=== PATIENT | male | born 1975 | race African-American/Black ===

== ENCOUNTER 2019-04-26 07:12 | Inpatient (IN) | payer BC ==
[~2019-04-26] VITALS: Ht 175.3 cm; Wt 106.1 kg
[2019-04-26] VITALS (24 sets, daily range): BP systolic 128–169; BP diastolic 75–134
[2019-04-26] MEDS ORDERED: NITROGLYCERIN PREMIX 250 ML IV ONE ×2 (07:23→07:45)
[2019-04-26] MEDS ORDERED: FUROSEMIDE 100 MG/10 ML VIAL. ONE (07:23)
--- NOTE | 2019-04-26 07:24 | PHYS DOC ---
Past Medical History Past Medical History: Hypertension Smoking: Cigarettes Drug Use: None (patient denies) Adult General Chief Complaint Chief Complaint: DYSPNEA/RESPIRATOY DISTRESS HPI HPI Patient is a 44-year-old male with history of hypertension who presents to the emergency department for evaluation and respiratory distress. He states he had some mild shortness of breath this morning, which gradually worsened, and then suddenly acutely worsened that just prior to arrival. His coworker was given a take him home, but due to the degree of respiratory distress that he began exhibiting, he was brought to the emergency department. Upon arrival, he is cold, diaphoretic, with an oxygen saturation in the 70s, tachycardic, and hypertensive. He was placed on a nonrebreather as BiPAP was arranged, he has diffuse crackles throughout, suggestive of acute pulmonary edema. He states his cough has been productive of clear sputum. He denies any pain, including any chest pain. He has not had any nausea, or vomiting. Laying flat seems to worsen his shortness of breath, as is exertion. Review of Systems Review of Systems Constitutional: Denies fever or chills [] Eyes: Denies change in visual acuity, redness, or eye pain [] HENT: Denies nasal congestion or sore throat [] Respiratory: Reports cough and shortness of breath[] Cardiovascular: No additional information not addressed in HPI [] GI: Denies abdominal pain, nausea, vomiting, bloody stools or diarrhea [] : Denies dysuria or hematuria [] Musculoskeletal: Denies back pain or joint pain [] Integument: Denies rash or skin lesions [] Neurologic: Denies headache, focal weakness or sensory changes [] Endocrine: Denies polyuria or polydipsia [] All other systems were reviewed and found to be within normal limits, except as documented in this note. Current Medications Current Medications Current Medications Medications (Trade) Dose Ordered Sig/Lena Start Time Stop Time Status Last Admin Dose Admin Aspirin (Children'S Aspirin) 324 mg 1X ONCE 04/26/19 07:45 04/26/19 07:46 DC 04/26/19 07:38 324 MG Furosemide (Lasix) 100 mg STK-MED ONCE 04/26/19 07:23 04/26/19 07:23 DC Morphine Sulfate (Morphine Sulfate) 2 mg PRN Q15MIN PRN 04/26/19 07:30 04/27/19 07:29 04/26/19 07:36 2 MG Nitroglycerin/ Dextrose 250 ml @ As Directed STK-MED ONCE 04/26/19 07:23 04/26/19 07:23 DC Allergies Allergies Allergies Coded Allergies Type Severity Reaction Last Updated Verified No Known Drug Allergies 04/26/19 No Physical Exam Physical Exam PHYSICAL EXAM: CONSTITUTIONAL: Well developed, well nourished HEAD: normocephalic, atraumatic EENT: PERRL, EOMI. Conjunctivae normal color, sclerae non-icteric; moist mucous membranes. NECK: Supple, non-tender; no meningismus. There is no JVD. LUNGS: There are crackles in all lung pina, with severe respiratory distress. HEART: Regular tachycardia, no murmur CHEST: No deformity; non-tender ABDOMEN: The abdomen is soft, and non-tender, no masses or bruits. EXTREM: Normal ROM; no deformity, no calf tenderness. Normal pulses palpable in all extremities. There is no pedal edema. SKIN: No rash; the skin is cool, diaphoretic NEURO: Alert; normal speech and cognition; CN's grossly intact; strength grossly intact without focal deficit. BACK: No CVA TTP. Current Patient Data Vital Signs Vital Signs Date Time Temp Pulse Resp B/P (MAP) Pulse Ox O2 Delivery O2 Flow Rate FiO2 04/26/19 07:36 30 98 BiPAP/CPAP 04/26/19 07:16 96.5 133 230/165 (186) 96.5 Lab Values Laboratory Tests Test 04/26/19 07:17 04/26/19 07:20 O2 Saturation 98 % (92-99) Arterial Blood pH 7.26 (7.35-7.45) L Arterial Blood pCO2 at Patient Temp 46 mmHg (35-46) Arterial Blood pO2 at Patient Temp 126 mmHg (75-108) H Arterial Blood HCO3 20 mmol/L (21-28) L Arterial Blood Base Excess -7 mmol/L (-3-3) L FiO2 60% bipap White Blood Count 12.5 x10^3/uL (4.0-11.0) H Red Blood Count 5.11 x10^6/uL (4.30-5.70) Hemoglobin 15.0 g/dL (13.0-17.5) Hematocrit 46.1 % (39.0-53.0) Mean Corpuscular Volume 90 fL (79-100) Mean Corpuscular Hemoglobin 29 pg (25-35) Mean Corpuscular Hemoglobin Concent 33 g/dL (31-37) Red Cell Distribution Width 14.2 % (11.5-14.5) Platelet Count 259 x10^3/uL (140-400) Neutrophils (%) (Auto) 70 % (31-73) Lymphocytes (%) (Auto) 23 % (24-48) L Monocytes (%) (Auto) 5 % (0-9) Eosinophils (%) (Auto) 2 % (0-3) Basophils (%) (Auto) 0 % (0-3) Neutrophils # (Auto) 8.8 x10^3/uL (1.8-7.7) H Lymphocytes # (Auto) 2.8 x10^3/uL (1.0-4.8) Monocytes # (Auto) 0.6 x10^3/uL (0.0-1.1) Eosinophils # (Auto) 0.3 x10^3/uL (0.0-0.7) Basophils # (Auto) 0.1 x10^3/uL (0.0-0.2) Prothrombin Time 12.6 SEC (11.7-14.0) Prothrombin Time INR 1.0 (0.8-1.1) Sodium Level 139 mmol/L (136-145) Potassium Level 4.7 mmol/L (3.5-5.1) Chloride Level 106 mmol/L (98-107) Carbon Dioxide Level 23 mmol/L (21-32) Anion Gap 10 (6-14) Blood Urea Nitrogen 18 mg/dL (8-26) Creatinine 1.8 mg/dL (0.7-1.3) H Estimated GFR (Cockcroft-Gault) 41.4 BUN/Creatinine Ratio 10 (6-20) Glucose Level 184 mg/dL (70-99) H Calcium Level 8.4 mg/dL (8.5-10.1) L Magnesium Level 1.9 mg/dL (1.8-2.4) Total Bilirubin 0.3 mg/dL (0.2-1.0) Aspartate Amino Transferase (AST) 26 U/L (15-37) Alanine Aminotransferase (ALT) 26 U/L (16-63) Alkaline Phosphatase 83 U/L (46-116) Troponin I Quantitative < 0.017 ng/mL (0.000-0.055) ZY-Owx-K-Type Natriuretic Peptide 2002 pg/mL (0-124) H Total Protein 8.1 g/dL (6.4-8.2) Albumin 3.6 g/dL (3.4-5.0) Albumin/Globulin Ratio 0.8 (1.0-1.7) L Laboratory Tests 04/26/19 07:20 Laboratory Tests 04/26/19 07:20 EKG EKG []Sinus tachycardia rate of 135 bpm, borderline left axis deviation, normal intervals, left ventricular hypertrophy with secondary repolarization abnormality without acute ischemic changes noted, rare PVCs. Radiology/Procedures Radiology/Procedures PROCEDURE: PORTABLE CHEST 1V Study: PORTABLE CHEST 1V Indication: Shortness of breath. Comparison: None. Findings: The cardiomediastinal silhouette is enlarged and the central vasculature congested. Increased interstitial markings and hazy attenuation with a perihilar predominance. No pneumothorax or large effusion. Impression: Cardiomegaly, central vascular congestion and findings of interstitial/alveolar edema without large effusion. [] Course & Med Decision Making Course & Med Decision Making Pertinent Labs and Imaging studies reviewed. (See chart for details) [] 9:00 AM: Patient's condition has significantly improved. His blood pressure improved with nitroglycerin drip, which is being titrated, his work of breathing and respiratory status had significantly improved. I discussed the case with the hospitalist will admit the patient for further evaluation and treatment. CRITICAL CARE TIME: 60 Minutes, excluding any procedures and care of other patients. Dragon Disclaimer Dragon Disclaimer This electronic medical record was generated, in whole or in part, using a voice recognition dictation system. Departure Departure Impression: Primary Impression: Acute pulmonary edema Additional Impressions: Congestive heart failure Hypertension Disposition: 09 ADMITTED INPATIENT Admitting Physician: DARLING Condition: GUARDED Problem Qualifiers LUIS CARLOS ORTEGA MD Apr 26, 2019 07:24
[2019-04-26] MEDS ORDERED: MORPHINE SULFATE 2 MG/ML VIAL. IV/SQ PRN (07:30)
[2019-04-26 07:44] LABS: BASE EXCESS ABG -7 mmol/L (-3-3); HCO3 ABG 20 mmol/L (21-28); PCO2 ABG 46 mmHg (35-46); PO2 ABG 126 mmHg (75-108); SAT O2 ABG 98 % (92-99)
[2019-04-26 07:45] LABS: BASO # 0.1 x10^3/uL (0.0-0.2); BASO % 0 % (0-3); EOS # 0.3 x10^3/uL (0.0-0.7); EOS % 2 % (0-3); HEMATOCRIT 46.1 % (39.0-53.0); LYMPH # 2.8 x10^3/uL (1.0-4.8); LYMPH % 23 % (24-48); MEAN CORPUSCULAR HEMOGLOBIN 29 pg (25-35); MEAN CORPUSCULAR HGB CONC 33 g/dL (31-37); MEAN CORPUSCULAR VOLUME 90 fL (79-100); MONO # 0.6 x10^3/uL (0.0-1.1); MONO % 5 % (0-9); NEUT # 8.8 x10^3/uL (1.8-7.7); NEUT % 70 % (31-73); PLATELET COUNT 259 x10^3/uL (140-400); RED BLOOD COUNT 5.11 x10^6/uL (4.30-5.70); RED CELL DISTRIBUTION WIDTH 14.2 % (11.5-14.5); WHITE BLOOD COUNT 12.5 x10^3/uL (4.0-11.0)
[2019-04-26] MEDS ORDERED: FUROSEMIDE 40 MG/4 ML VIAL. IVP ONE (07:45)
[2019-04-26] MEDS ORDERED: ASPIRIN CHEWABLE 81 MG TABLET. PO ONE (07:45)
--- NOTE | 2019-04-26 07:45 | RAD ---
Study: PORTABLE CHEST 1V Indication: Shortness of breath. Comparison: None. Findings: The cardiomediastinal silhouette is enlarged and the central vasculature congested. Increased interstitial markings and hazy attenuation with a perihilar predominance. No pneumothorax or large effusion. Impression: Cardiomegaly, central vascular congestion and findings of interstitial/alveolar edema without large effusion. Electronically signed by: CHANI REECE MD (04/26/2019 7:42 AM) [facility]
[2019-04-26 07:48] LABS: FIO2 ABG 60% BIPAP
[2019-04-26 07:50] LABS: PROTHROMBIN TIME PATIENT 12.6 SEC (11.7-14.0)
[2019-04-26 07:57] LABS: CALCIUM 8.4 mg/dL (8.5-10.1); CREATININE 1.8 mg/dL (0.7-1.3); GFR 41.4; POTASSIUM 4.7 mmol/L (3.5-5.1)
[2019-04-26 08:04] LABS: ALBUMIN 3.6 g/dL (3.4-5.0); ALBUMIN/GLOBULIN RATIO 0.8 (1.0-1.7); MAGNESIUM 1.9 mg/dL (1.8-2.4); TOTAL BILIRUBIN 0.3 mg/dL (0.2-1.0); TOTAL PROTEIN 8.1 g/dL (6.4-8.2)
--- NOTE | 2019-04-26 09:00 | EKG ---
[facility] [address] [place] [address] Test Date: 2019-04-26 Test Time: 07:21:01 Pat Name: VERONA ALLEN Department: Room: Gender: M [employer] Machine: : [id number] Requested By: LUIS CARLOS ORTEGA Order Number: [id number] Reading MD: Kevin Malin MD Measurements Intervals [place] Rate: 135 P: -78 NM: 108 QRS: 6 QRSD: 104 T: 79 QT: 308 QTc: 466 Interpretive Statements SINUS TACHYCARDIA LEFT ATRIAL ABNORMALITY LVH WITH REPOLARIZATION ABNORMALITY Electronically Signed On 04-26-2019 13:26:58 QUILL MACHINE OPERATOR by Kevin Malin MD
[2019-04-26 09:02] LABS: BILIRUBIN,URINE NEGATIVE (NEG); CLARITY,URINE CLEAR; COLOR,URINE YELLOW; NITRITE,URINE NEGATIVE (NEG); PROTEIN,URINE 30 mg/dL (NEG-TRACE); UROBILINOGEN,URINE 0.2 mg/dL (0.2 mg/dL)
[2019-04-26 09:11] LABS: BARBITURATES NEG (NEG); BENZODIAZEPINES NEG (NEG); CANNABINOIDS NEG (NEG); COCAINE NEG (NEG); METHADONE NEG (NEG); OPIATES POS (NEG); PHENCYCLIDINE NEG (NEG)
[2019-04-26 09:13] LABS: AMPHETAMINE/METHAMPHETAMINE NEG (NEG)
[2019-04-26 09:14] LABS: BACTERIA,URINE FEW /HPF (0-FEW); HYALINE CASTS, URINE OCCASIONAL /HPF; RBC,URINE 0 /HPF (0-2); SQUAMOUS EPITHELIAL CELL,UR FEW /LPF; WBC,URINE OCC /HPF (0-4)
[2019-04-26] MEDS ORDERED: AMLO10TA8 PO (10:22)
[2019-04-26] MEDS ORDERED: CARV25TA2 PO (10:22)
[2019-04-26] MEDS ORDERED: LISI-334 PO (10:22)
[2019-04-26] MEDS ORDERED: FURO-69 PO (10:22)
[2019-04-26] MEDS ORDERED: ATOR40TA59 PO (10:22)
[2019-04-26] MEDS ORDERED: NITROGLYCERIN PREMIX 250 ML IV PRN (10:30)
--- NOTE | 2019-04-26 10:40 | NUR ---
Rec'd fro ER per cart. Pt stood to bed. Placed on 100NRB for now instead of Bipap as pt stated he is breathing so much better. NTG on and BP still high so titrated up. Pt A&O. Denies any chest discomfort. 2 IV patent. Pt did not lnow his meds so Rosana called and meds reviewed. Pt stated he had been taking all his meds but that he was under stress at home. Lasix 80mg was given in ER and pt voided 900. Now voided another 500. Placed on 6l n/c sat 99%. Dr Dowell at bedside, Mother here.
--- NOTE | 2019-04-26 11:30 | PDOC2 ---
MEHDI ROCHA HUB LEAD 04/26/19 1130: CARDIAC CONSULT DATE OF CONSULT Date of Consult DATE: 04/26/19 TIME: 11:24 REASON FOR CONSULT Reason for Consult: CHF REFERRING PHYSICIAN Referring Physician: Dr. Dove SOURCE Source: Chart review, Patient HISTORY OF PRESENT ILLNESS HISTORY OF PRESENT ILLNESS This is a 44 yo male who presented secondary to shortness of breath and respiratory distress. Patient reports feeling slightly short of breath this morning. Drove to work and took his oral medications as usual. He walked into work and became significantly dyspneic. Had difficulty catching his breath. No chest pain, DICK, palpitations, dizziness, diaphoresis, or nausea/vomiting. Was tachypneic, hypoxic, and significantly hypertensive upon arrival. Was started on nitro gtt and given IV Lasix. Is feeling much better following diuresis. Does have a history of HTN and CVA. Reports compliance with medications. Reports increased stress at home as he recently went through divorce and has been working 12 hours shifts upon to 6 days per week. PAST MEDICAL HISTORY Cardiovascular: HTN CENTRAL NERVOUS SYSTEM: CVA PAST SURGICAL HISTORY Past Surgical History: No pertinent history FAMILY HISTORY Family History: Hypertension SOCIAL HISTORY Smoke: No ALCOHOL: none Drugs: None Lives: with Family CURRENT MEDICATIONS CURRENT MEDICATIONS Current Medications Medications (Trade) Dose Ordered Sig/Lena Route PRN Reason Start Time Stop Time Status Last Admin Dose Admin Aspirin (Children'S Aspirin) 324 mg 1X ONCE PO 04/26/19 07:45 04/26/19 07:46 DC 04/26/19 07:38 Morphine Sulfate (Morphine Sulfate) 2 mg PRN Q15MIN PRN IV/SQ PAIN GREATER THAN 3/10 04/26/19 07:30 04/27/19 07:29 04/26/19 07:36 Nitroglycerin/ Dextrose 250 ml @ 0 mls/hr 1X ONCE IV 04/26/19 07:45 04/26/19 07:46 DC 04/26/19 07:31 Furosemide (Lasix) 80 mg 1X ONCE IVP 04/26/19 07:45 04/26/19 07:46 DC 04/26/19 07:28 Nitroglycerin/ Dextrose 250 ml @ 1.5 mls/hr CONT PRN IV SEE I/O RECORD 04/26/19 10:30 04/26/19 10:35 ALLERGIES ALLERGIES: Coded Allergies: No Known Drug Allergies (Unverified , 04/26/19) ROS Review of System 14 point ROS conducted with pertinent positives noted above in HPI PHYSICAL EXAM General: Alert, Oriented X3, Cooperative, No acute distress HEENT: Atraumatic, Mucous membr. moist/pink Lungs: Other (bibasilar crackles ) Heart: Regular rate, Normal S1, Normal S2 Abdomen: Soft, No tenderness Extremities: Other (trace bilateral LE edema ) Skin: No significant lesion Neuro: Normal speech, Sensation intact Psych/Mental Status: Mental status NL, Mood NL MUSCULOSKELETAL: Osteoarthritic changes both hands VITALS/I&O VITALS/I&O: Vital Signs Date Time Temp Pulse Resp B/P (MAP) Pulse Ox O2 Delivery O2 Flow Rate FiO2 04/26/19 11:12 98 Nasal Cannula 5.0 04/26/19 09:05 92 24 168/103 (124) 04/26/19 07:16 96.5 96.5 LABS Lab: Laboratory Tests Test 04/26/19 07:17 04/26/19 07:20 04/26/19 08:50 O2 Saturation 98 % (92-99) Arterial Blood pH 7.26 (7.35-7.45) L Arterial Blood pCO2 at Patient Temp 46 mmHg (35-46) Arterial Blood pO2 at Patient Temp 126 mmHg (75-108) H Arterial Blood HCO3 20 mmol/L (21-28) L Arterial Blood Base Excess -7 mmol/L (-3-3) L FiO2 60% bipap White Blood Count 12.5 x10^3/uL (4.0-11.0) H Red Blood Count 5.11 x10^6/uL (4.30-5.70) Hemoglobin 15.0 g/dL (13.0-17.5) Hematocrit 46.1 % (39.0-53.0) Mean Corpuscular Volume 90 fL (79-100) Mean Corpuscular Hemoglobin 29 pg (25-35) Mean Corpuscular Hemoglobin Concent 33 g/dL (31-37) Red Cell Distribution Width 14.2 % (11.5-14.5) Platelet Count 259 x10^3/uL (140-400) Neutrophils (%) (Auto) 70 % (31-73) Lymphocytes (%) (Auto) 23 % (24-48) L Monocytes (%) (Auto) 5 % (0-9) Eosinophils (%) (Auto) 2 % (0-3) Basophils (%) (Auto) 0 % (0-3) Neutrophils # (Auto) 8.8 x10^3/uL (1.8-7.7) H Lymphocytes # (Auto) 2.8 x10^3/uL (1.0-4.8) Monocytes # (Auto) 0.6 x10^3/uL (0.0-1.1) Eosinophils # (Auto) 0.3 x10^3/uL (0.0-0.7) Basophils # (Auto) 0.1 x10^3/uL (0.0-0.2) Prothrombin Time 12.6 SEC (11.7-14.0) Prothrombin Time INR 1.0 (0.8-1.1) Sodium Level 139 mmol/L (136-145) Potassium Level 4.7 mmol/L (3.5-5.1) Chloride Level 106 mmol/L (98-107) Carbon Dioxide Level 23 mmol/L (21-32) Anion Gap 10 (6-14) Blood Urea Nitrogen 18 mg/dL (8-26) Creatinine 1.8 mg/dL (0.7-1.3) H Estimated GFR (Cockcroft-Gault) 41.4 BUN/Creatinine Ratio 10 (6-20) Glucose Level 184 mg/dL (70-99) H Calcium Level 8.4 mg/dL (8.5-10.1) L Magnesium Level 1.9 mg/dL (1.8-2.4) Total Bilirubin 0.3 mg/dL (0.2-1.0) Aspartate Amino Transferase (AST) 26 U/L (15-37) Alanine Aminotransferase (ALT) 26 U/L (16-63) Alkaline Phosphatase 83 U/L (46-116) Troponin I Quantitative < 0.017 ng/mL (0.000-0.055) PI-Elo-X-Type Natriuretic Peptide 2002 pg/mL (0-124) H Total Protein 8.1 g/dL (6.4-8.2) Albumin 3.6 g/dL (3.4-5.0) Albumin/Globulin Ratio 0.8 (1.0-1.7) L Urine Collection Type Unknown Urine Color Yellow Urine Clarity Clear Urine pH 5.0 Urine Specific [place] 1.010 Urine Protein 30 mg/dL (NEG-TRACE) Urine Glucose (UA) Negative mg/dL (NEG) Urine Ketones (Stick) Negative mg/dL (NEG) Urine Blood Negative (NEG) Urine Nitrite Negative (NEG) Urine Bilirubin Negative (NEG) Urine Urobilinogen Dipstick 0.2 mg/dL (0.2 mg/dL) Urine Leukocyte Esterase Negative (NEG) Urine RBC 0 /HPF (0-2) Urine WBC Occ /HPF (0-4) Urine Squamous Epithelial Cells Few /LPF Urine Bacteria Few /HPF (0-FEW) Urine Hyaline Casts Occasional /HPF Urine Opiates Screen Pos (NEG) Urine Methadone Screen Neg (NEG) Urine Barbiturates Neg (NEG) Urine Phencyclidine Screen Neg (NEG) Urine Amphetamine/Methamphetamine Neg (NEG) Urine Benzodiazepines Screen Neg (NEG) Urine Cocaine Screen Neg (NEG) Urine Cannabinoids Screen Neg (NEG) Urine Ethyl Alcohol Neg (NEG) Laboratory Tests 04/26/19 07:20 Laboratory Tests 04/26/19 07:20 ASSESSMENT/PLAN ASSESSMENT/PLAN 1. Acute respiratory failure secondary to acute CHF 2. Acute probable diastolic CHF in the setting malignant HTN 3. Malignant HTN; on nitro gtt 4. Probable CKD 5. H/o CVA Recommendations Diuresis with monitoring of renal function Echo to assess LV systolic function Resume home antiHTN therapy; increase lisinopril Hydralazine IV PRN Secondary prevention measures Will obtain renal duplex to r/o ANGELITO LENIN MANE MD 04/26/19 1417: CARDIAC CONSULT ASSESSMENT/PLAN ASSESSMENT/PLAN Patient seen and examined. Agree with FUR GLAZER's assessment and plan. Acute respiratory failure secondary to acute on chronic diastolic heart failure Symptoms improving with diuresis Resume home antihypertensives and titrate for better blood pressure control Check 2-D echo to assess LV function and renal arterial duplex scan to rule out renovascular hypertension Thank you for your consultation MEHDI ROCHA APRN Apr 26, 2019 11:30 LENIN MANE MD Apr 26, 2019 14:17
--- NOTE | 2019-04-26 11:35 | CONS ---
DATE OF CONSULTATION: PULMONARY CONSULTATION ATTENDING PHYSICIAN: Dr. Dove. REASON FOR CONSULTATION: Respiratory failure. HISTORY OF PRESENT ILLNESS: The patient is a 44-year-old who has history of hypertension. He presented to the Emergency Room with increased respiratory distress. He said he woke up and had progressive shortness of breath. He did not have any significant cough, fever or chills. No chest pain, no headaches, no nausea, vomiting, no diarrhea. No leg edema. The patient was seen in the Emergency Room and was diaphoretic. His saturations were in the 70s. He was tachycardic and hypertensive. His systolic blood pressure was reported 234/155. The patient's chest x-ray showed diffuse interstitial edema and cardiomegaly. The patient was initially placed on BiPAP. His ABG showed a pH of 7.26, pCO2 of 46 and a pO2 of 126 on 60% BiPAP. He did receive 80 mg of IV Lasix. He was then transferred to the ICU while on 100% nonrebreather mask. His saturations were in the high 90s and we switched him to 6 liters nasal cannula and he is saturating in the mid to high 90s. I have been asked to see him for further evaluation. This is his first episode of congestive heart failure. PAST MEDICAL HISTORY: Significant for history of hypertension. Minimal tobacco history. PAST SURGICAL HISTORY: No recent surgeries. ALLERGIES: None. MEDICATIONS: Reviewed as listed in the MRAD. REVIEW OF SYSTEMS: Twelve-point system obtained. Pertinent positives discussed in my history of present illness, otherwise noncontributory. All systems that were negative were reviewed as well. SOCIAL HISTORY: Denies any drug use and history of 10 years of tobacco use. PHYSICAL EXAMINATION: VITAL SIGNS: His vital signs are better. His initial blood pressure was 234/155, and the latest one is 168/103. Pulse is in the 90s. Pulse ox is 99% on 6 liters cannula. NECK: Supple. LUNGS: Crackles at the bases. CARDIOVASCULAR: With a regular rate. ABDOMEN: Soft, nontender. EXTREMITIES: With no pitting edema. LABORATORY DATA: Reviewed. His ABGs as discussed in my history of present illness. BUN 18, creatinine 1.8. ProBNP 2002. INR 1.0. White cell count 12.5, hemoglobin 15.0, platelets 259. IMPRESSION: 1. Acute hypoxic respiratory failure secondary to acute interstitial pulmonary edema secondary to hypertensive emergency. 2. The patient with known hypertension, now comes in with hypertensive emergency with markedly elevated systolic and diastolic pressure triggering acute diastolic heart failure, minimal history of tobacco use. 3. Abnormal chest x-ray with diffuse interstitial edema and moderate cardiomegaly. 4. Probably CKD. RECOMMENDATIONS: 1. Continue with present nasal cannula, keep saturation 96 and above and gradually wean FiO2. 2. Follow chest x-ray post-diuresis in the next 24 hours. 3. Obtain echocardiogram. 4. Cardiology consult and recommendation. 5. The patient would need optimization of blood pressure as an outpatient. 6. Echocardiogram per Cardiology. 7. Discussed with the patient's family, RN and Cardiology, [employer] FASTENER DRIVER and will follow along with you. Discussed with Dr. Dove. Total critical care time 35 minutes. CARLO COLÓN MD DR: DIONTE/marisel JOB#: [id number] / [id number]
[2019-04-26] MEDS: hydrALAZINE 20 MG/ML VIAL. IVP PRN (11:52)
--- NOTE | 2019-04-26 12:23 | HP ---
ADMIT DATE: 04/26/2019 CHIEF COMPLAINT: Respiratory failure. HISTORY OF PRESENT ILLNESS: The patient is a pleasant 44-year-old male who presented to the ER with fulminant respiratory failure. He was near , perhaps even 10 minutes away. He seems to be in severe heart failure, had a lot of crackles. He was extremely hypoxic, barely awake. He was cold and clammy. We gave him IV Lasix, placed him on BiPAP, given him nitro drip because his pressure is extremely high. He is now starting to respond. He is critically ill. PAST MEDICAL HISTORY: Hypertension and tobacco abuse. ALLERGIES: None. FAMILY HISTORY: Diabetes. SOCIAL HISTORY: He smokes and drinks socially. No drugs. MEDICATIONS: Reviewed, please refer to the MRAD. REVIEW OF SYSTEMS: Unable to obtain. The patient is too obtunded. PHYSICAL EXAMINATION: VITALS: Within normal limits and are stable. His blood pressure was 234/155 when he arrived. GENERAL: No apparent distress. Alert and oriented. HEENT: He has BiPAP on. Oral mucosa is moist. EYES: Extraocular muscles are intact, pupils are equally round and reactive to light and accommodation MUSCULOSKELETAL: Well developed, well nourished, good range of motion ENDOCRINE: No thyromegaly was palpated LYMPHATICS: No cervical chain or axillary nodes were noted HEMATOPOIETIC: No bruising NECK: Supple, no JVD, no thyromegaly was noted. LUNGS: He has got diffuse crackles. HEART: He has S1, S2 and a soft S3. ABDOMEN: Soft, nontender. Positive bowel sounds no organomegaly, normal bowel sounds. EXTREMITIES: He has 1+ edema. NEUROLOGIC: He is extremely obtunded. PSYCHIATRIC: Normal affect, normal mood. Stable. SKIN: No ulcerations or rashes, good skin turgor, no jaundice. VASCULAR: Good capillary refill, neurovascular bundle appears to be intact. LABORATORY DATA: White count is 12. Electrolytes are normal. BNP is 2000. Troponin is 0. Chest x-ray shows vascular congestion. Drug screen is positive for opiates. INR is 1. Urinalysis is negative. ASSESSMENT AND PLAN: Fulminant respiratory failure, suspect acute on chronic systolic and diastolic heart failure with hypertensive emergency. The patient has been admitted to the ICU. He is on BiPAP. We are diuresing him well. He has already put out 2000 mL. Continue the BiPAP. I called Dr. Dowell and spoke with him personally. He is going to see the patient. I talked to the ER nurse and the ER physician. LONG-TERM PROGNOSIS: Guarded. TOTAL TIME: 32 minutes. NEGRA HAWKINS DO DR: RODO/marisel JOB#: [id number] / [id number]
[2019-04-26] MEDS: amLODIPine BESYLATE 10 MG TABLET PO SCH (13:02)
[2019-04-26] MEDS: ISOSORBIDE MONONITRATE ER 30 MG TAB.ER.24H PO SCH (13:52)
[2019-04-26] MEDS: CARVEDILOL 12.5 MG TABLET. PO SCH (16:45)
[2019-04-27] VITALS (24 sets, daily range): BP systolic 90–173; BP diastolic 52–107
[2019-04-27 04:28] LABS: BASO % 0 % (0-3); EOS # 0.1 x10^3/uL (0.0-0.7); EOS % 1 % (0-3); HEMOGLOBIN 12.9 g/dL (13.0-17.5); LYMPH # 1.8 x10^3/uL (1.0-4.8); LYMPH % 19 % (24-48); MEAN CORPUSCULAR HEMOGLOBIN 29 pg (25-35); MEAN CORPUSCULAR HGB CONC 33 g/dL (31-37); MEAN CORPUSCULAR VOLUME 89 fL (79-100); MONO # 0.6 x10^3/uL (0.0-1.1); MONO % 7 % (0-9); NEUT # 7.3 x10^3/uL (1.8-7.7); NEUT % 73 % (31-73); PLATELET COUNT 225 x10^3/uL (140-400); RED BLOOD COUNT 4.38 x10^6/uL (4.30-5.70); RED CELL DISTRIBUTION WIDTH 14.1 % (11.5-14.5)
[2019-04-27] MEDS: hydrALAZINE 20 MG/ML VIAL. IVP PRN ×2 (04:37→08:16)
[2019-04-27 05:07] LABS: ALBUMIN 3.2 g/dL (3.4-5.0); ALBUMIN/GLOBULIN RATIO 0.8 (1.0-1.7); CALCIUM 8.4 mg/dL (8.5-10.1); CREATININE 1.6 mg/dL (0.7-1.3); GFR 57.4; POTASSIUM 3.4 mmol/L (3.5-5.1); TOTAL BILIRUBIN 0.5 mg/dL (0.2-1.0); TOTAL PROTEIN 7.1 g/dL (6.4-8.2)
[2019-04-27] MEDS: LABETALOL 20 MG/4 ML DISP.SYRIN. IVP PRN ×2 (06:33→08:35)
--- NOTE | 2019-04-27 06:42 | CARD ---
MR#: [id number] Date of Study: 04/26/2019 Ordering Physician: MEHDI ROCHA, Referring Physician: MEHDI ROCHA, Tech: Sully Nicole APPROVED REPORT EXAM: Two-dimensional and M-mode echocardiogram with Doppler and color Doppler. Other Information Quality : GoodHR: 85bpm INDICATION Congestive Heart Failure 2D DIMENSIONS RVDd2.7 (2.9-3.5cm)Left Atrium(2D)4.4 (1.6-4.0cm) IVSd1.5 (0.7-1.1cm)Aortic Root(2D)3.7 (2.0-3.7cm) LVDd5.9 (3.9-5.9cm)LVOT Diameter2.0 (1.8-2.4cm) PWd1.6 (0.7-1.1cm)LVDs5.4 (2.5-4.0cm) FS (%) 8.4 %SV31.9 ml LVEF(%)18.2 (>50%) Aortic Valve AoV Peak Ye.120.1cm/sAoV VTI21.5cm AO Peak GR.5.8mmHgLVOT VTI 10.72cm AO Mean GR.4mmHg Mitral Valve MV E Iypuwyth17.9cm/sMV E Peak Gr.4mmHg MV DECEL [id number] E Mean Gr.2mmHg TDI Lateral E' P. V4.25cm/sMedial E' P. V5.73cm/s E/Lateral E'6.6E/Medial E'4.9 Tricuspid Valve TR P. [id number]/sRAP [id number] TR Peak Gr.84izNcXZFL53eoUs Pulmonary Vein S1 Bkvwbdpi52.6cm/sS2 Agozescz15.71cm/s D2 Xrswbjcs09.7cm/sPVa [id number] LEFT VENTRICLE The Left Ventricle is borderline dilated. There is moderate concentric left ventricular hypertrophy. The left ventricular systolic function is severely impaired. The Ejection Fraction is 20-25%. There i s global hypokinesis of the left ventricle. RIGHT VENTRICLE The right ventricle is normal size. There is normal right ventricular wall thickness. The right ventr icular systolic function is normal. ATRIA The left atrium size is normal. The right atrium size is normal. The interatrial septum is intact wit h no evidence for an atrial septal defect or patent foramen ovale as noted on 2-D or Doppler imaging. AORTIC VALVE The aortic valve is normal in structure and function. Doppler and Color Flow revealed trace aortic re gurgitation. There is no significant aortic valvular stenosis. MITRAL VALVE The mitral valve is thickened but opens well. A borderline mitral valve prolapse is present. There is no mitral valve stenosis. Doppler and Color-flow revealed trace mitral regurgitation. TRICUSPID VALVE The tricuspid valve is normal in structure and function. Doppler and Color Flow revealed trace tricus pid regurgitation with an estimated 25 mmHg. There is no tricuspid valve stenosis. PULMONIC VALVE The pulmonary valve is normal in structure and function. Doppler and Color Flow revealed trace to mil d pulmonic valvular regurgitation. GREAT VESSELS The aortic root is normal in size. The IVC is normal in size and collapses >50% with inspiration. PERICARDIAL EFFUSION There is no evidence of significant pericardial effusion. Critical Notification Critical Value: No <Conclusion> The left ventricular systolic function is severely impaired. The Ejection Fraction is 20-25%. Trace mitral regurgitation. Trace tricuspid regurgitation with an estimated 25 mmHg. There is no evidence of significant pericardial effusion. Signed by : Jaspreet Delong, Electronically Approved : 04/27/2019 06:41:39
[2019-04-27] MEDS: LISINOPRIL 20 MG TABLET PO SCH (08:15)
[2019-04-27] MEDS: FUROSEMIDE 40 MG/4 ML VIAL. IVP SCH (08:16)
[2019-04-27] MEDS: ISOSORBIDE MONONITRATE ER 30 MG TAB.ER.24H PO SCH (08:17)
[2019-04-27] MEDS: ASPIRIN ENTERIC COATED 81 MG TABLET.DR. PO SCH (08:17)
[2019-04-27] MEDS: CARVEDILOL 12.5 MG TABLET. PO SCH ×2 (08:17→17:49)
[2019-04-27] MEDS: amLODIPine BESYLATE 10 MG TABLET PO SCH (08:18)
[2019-04-27] MEDS ORDERED: POTASSIUM CHLORIDE 20 MEQ TABLET.ER. PO ONE (08:30)
--- NOTE | 2019-04-27 08:34 | NUR ---
SS following for discharge planning. SS reviewed pt chart. Pt is from home and is currently on room air. SS will continue to follow for discharge planning.
--- NOTE | 2019-04-27 08:47 | RAD ---
EXAM: AP View of the chest DATE: 04/27/2019 7:00 AM INDICATION: CHF, pulmonary edema COMPARISON: 04/26/2019 FINDINGS: Cardiomediastinal silhouette is stable including cardiomegaly. Interval resolution of bilateral airspace opacities. No pleural effusion or pneumothorax. IMPRESSION: Interval resolution of bilateral airspace opacities suggesting improvement/resolution of pulmonary edema. Electronically signed by: Tao Mendez MD (04/27/2019 8:45 AM) [id number]
--- NOTE | 2019-04-27 08:53 | PDOC ---
PULMONARY PROGRESS NOTES Subjective feels better, no debora on RA Vitals Vital Signs Date Time Temp Pulse Resp B/P (MAP) Pulse Ox O2 Delivery O2 Flow Rate FiO2 04/27/19 08:35 90 171/108 04/27/19 06:00 20 99 Room Air 04/27/19 04:00 98.8 98.8 04/27/19 01:00 1.0 ROS: No Chest Pain General: Alert, No acute distress Lungs: Clear Cardiovascular: S1 Abdomen: Soft Neuro Exam: Alert Extremities: No Edema Skin: Warm Labs Laboratory Tests Test 04/26/19 07:17 04/26/19 07:20 04/26/19 08:50 04/27/19 04:05 O2 Saturation 98 % (92-99) Arterial Blood pH 7.26 (7.35-7.45) Arterial Blood pCO2 at Patient Temp 46 mmHg (35-46) Arterial Blood pO2 at Patient Temp 126 mmHg (75-108) Arterial Blood HCO3 20 mmol/L (21-28) Arterial Blood Base Excess -7 mmol/L (-3-3) FiO2 60% bipap White Blood Count 12.5 x10^3/uL (4.0-11.0) 10.0 x10^3/uL (4.0-11.0) Red Blood Count 5.11 x10^6/uL (4.30-5.70) 4.38 x10^6/uL (4.30-5.70) Hemoglobin 15.0 g/dL (13.0-17.5) 12.9 g/dL (13.0-17.5) Hematocrit 46.1 % (39.0-53.0) 39.0 % (39.0-53.0) Mean Corpuscular Volume 90 fL (79-100) 89 fL (79-100) Mean Corpuscular Hemoglobin 29 pg (25-35) 29 pg (25-35) Mean Corpuscular Hemoglobin Concent 33 g/dL (31-37) 33 g/dL (31-37) Red Cell Distribution Width 14.2 % (11.5-14.5) 14.1 % (11.5-14.5) Platelet Count 259 x10^3/uL (140-400) 225 x10^3/uL (140-400) Neutrophils (%) (Auto) 70 % (31-73) 73 % (31-73) Lymphocytes (%) (Auto) 23 % (24-48) 19 % (24-48) Monocytes (%) (Auto) 5 % (0-9) 7 % (0-9) Eosinophils (%) (Auto) 2 % (0-3) 1 % (0-3) Basophils (%) (Auto) 0 % (0-3) 0 % (0-3) Neutrophils # (Auto) 8.8 x10^3/uL (1.8-7.7) 7.3 x10^3/uL (1.8-7.7) Lymphocytes # (Auto) 2.8 x10^3/uL (1.0-4.8) 1.8 x10^3/uL (1.0-4.8) Monocytes # (Auto) 0.6 x10^3/uL (0.0-1.1) 0.6 x10^3/uL (0.0-1.1) Eosinophils # (Auto) 0.3 x10^3/uL (0.0-0.7) 0.1 x10^3/uL (0.0-0.7) Basophils # (Auto) 0.1 x10^3/uL (0.0-0.2) 0.0 x10^3/uL (0.0-0.2) Prothrombin Time 12.6 SEC (11.7-14.0) Prothromb Time International Ratio 1.0 (0.8-1.1) Sodium Level 139 mmol/L (136-145) 140 mmol/L (136-145) Potassium Level 4.7 mmol/L (3.5-5.1) 3.4 mmol/L (3.5-5.1) Chloride Level 106 mmol/L (98-107) 104 mmol/L (98-107) Carbon Dioxide Level 23 mmol/L (21-32) 25 mmol/L (21-32) Anion Gap 10 (6-14) 11 (6-14) Blood Urea Nitrogen 18 mg/dL (8-26) 21 mg/dL (8-26) Creatinine 1.8 mg/dL (0.7-1.3) 1.6 mg/dL (0.7-1.3) Estimated GFR (Cockcroft-Gault) 41.4 57.4 BUN/Creatinine Ratio 10 (6-20) 13 (6-20) Glucose Level 184 mg/dL (70-99) 109 mg/dL (70-99) Calcium Level 8.4 mg/dL (8.5-10.1) 8.4 mg/dL (8.5-10.1) Magnesium Level 1.9 mg/dL (1.8-2.4) 1.9 mg/dL (1.8-2.4) Total Bilirubin 0.3 mg/dL (0.2-1.0) 0.5 mg/dL (0.2-1.0) Aspartate Amino Transf (AST/SGOT) 26 U/L (15-37) 18 U/L (15-37) Alanine Aminotransferase (ALT/SGPT) 26 U/L (16-63) 20 U/L (16-63) Alkaline Phosphatase 83 U/L (46-116) 69 U/L (46-116) Troponin I Quantitative < 0.017 ng/mL (0.000-0.055) UT-Dtx-B-Type Natriuretic Peptide 2002 pg/mL (0-124) Total Protein 8.1 g/dL (6.4-8.2) 7.1 g/dL (6.4-8.2) Albumin 3.6 g/dL (3.4-5.0) 3.2 g/dL (3.4-5.0) Albumin/Globulin Ratio 0.8 (1.0-1.7) 0.8 (1.0-1.7) Triglycerides Level 77 mg/dL (0-150) Cholesterol Level 202 mg/dL (0-200) LDL Cholesterol, Calculated 120 mg/dL (0-100) VLDL Cholesterol, Calculated 15 mg/dL (0-40) Non-HDL Cholesterol Calculated 135 mg/dL (0-129) HDL Cholesterol 67 mg/dL (40-60) Cholesterol/HDL Ratio 3.0 Thyroid Stimulating Hormone (TSH) 2.218 uIU/mL (0.358-3.74) Urine Collection Type Unknown Urine Color Yellow Urine Clarity Clear Urine pH 5.0 Urine Specific Lapel 1.010 Urine Protein 30 mg/dL (NEG-TRACE) Urine Glucose (UA) Negative mg/dL (NEG) Urine Ketones (Stick) Negative mg/dL (NEG) Urine Blood Negative (NEG) Urine Nitrite Negative (NEG) Urine Bilirubin Negative (NEG) Urine Urobilinogen Dipstick 0.2 mg/dL (0.2 mg/dL) Urine Leukocyte Esterase Negative (NEG) Urine RBC 0 /HPF (0-2) Urine WBC Occ /HPF (0-4) Urine Squamous Epithelial Cells Few /LPF Urine Bacteria Few /HPF (0-FEW) Urine Hyaline Casts Occasional /HPF Urine Opiates Screen Pos (NEG) Urine Methadone Screen Neg (NEG) Urine Barbiturates Neg (NEG) Urine Phencyclidine Screen Neg (NEG) Urine Amphetamine/Methamphetamine Neg (NEG) Urine Benzodiazepines Screen Neg (NEG) Urine Cocaine Screen Neg (NEG) Urine Cannabinoids Screen Neg (NEG) Urine Ethyl Alcohol Neg (NEG) Laboratory Tests Test 04/26/19 08:50 04/27/19 04:05 Urine Collection Type Unknown Urine Color Yellow Urine Clarity Clear Urine pH 5.0 Urine Specific Lapel 1.010 Urine Protein 30 mg/dL (NEG-TRACE) Urine Glucose (UA) Negative mg/dL (NEG) Urine Ketones (Stick) Negative mg/dL (NEG) Urine Blood Negative (NEG) Urine Nitrite Negative (NEG) Urine Bilirubin Negative (NEG) Urine Urobilinogen Dipstick 0.2 mg/dL (0.2 mg/dL) Urine Leukocyte Esterase Negative (NEG) Urine RBC 0 /HPF (0-2) Urine WBC Occ /HPF (0-4) Urine Squamous Epithelial Cells Few /LPF Urine Bacteria Few /HPF (0-FEW) Urine Hyaline Casts Occasional /HPF Urine Opiates Screen Pos (NEG) Urine Methadone Screen Neg (NEG) Urine Barbiturates Neg (NEG) Urine Phencyclidine Screen Neg (NEG) Urine Amphetamine/Methamphetamine Neg (NEG) Urine Benzodiazepines Screen Neg (NEG) Urine Cocaine Screen Neg (NEG) Urine Cannabinoids Screen Neg (NEG) Urine Ethyl Alcohol Neg (NEG) White Blood Count 10.0 x10^3/uL (4.0-11.0) Red Blood Count 4.38 x10^6/uL (4.30-5.70) Hemoglobin 12.9 g/dL (13.0-17.5) Hematocrit 39.0 % (39.0-53.0) Mean Corpuscular Volume 89 fL (79-100) Mean Corpuscular Hemoglobin 29 pg (25-35) Mean Corpuscular Hemoglobin Concent 33 g/dL (31-37) Red Cell Distribution Width 14.1 % (11.5-14.5) Platelet Count 225 x10^3/uL (140-400) Neutrophils (%) (Auto) 73 % (31-73) Lymphocytes (%) (Auto) 19 % (24-48) Monocytes (%) (Auto) 7 % (0-9) Eosinophils (%) (Auto) 1 % (0-3) Basophils (%) (Auto) 0 % (0-3) Neutrophils # (Auto) 7.3 x10^3/uL (1.8-7.7) Lymphocytes # (Auto) 1.8 x10^3/uL (1.0-4.8) Monocytes # (Auto) 0.6 x10^3/uL (0.0-1.1) Eosinophils # (Auto) 0.1 x10^3/uL (0.0-0.7) Basophils # (Auto) 0.0 x10^3/uL (0.0-0.2) Sodium Level 140 mmol/L (136-145) Potassium Level 3.4 mmol/L (3.5-5.1) Chloride Level 104 mmol/L (98-107) Carbon Dioxide Level 25 mmol/L (21-32) Anion Gap 11 (6-14) Blood Urea Nitrogen 21 mg/dL (8-26) Creatinine 1.6 mg/dL (0.7-1.3) Estimated GFR (Cockcroft-Gault) 57.4 BUN/Creatinine Ratio 13 (6-20) Glucose Level 109 mg/dL (70-99) Calcium Level 8.4 mg/dL (8.5-10.1) Magnesium Level 1.9 mg/dL (1.8-2.4) Total Bilirubin 0.5 mg/dL (0.2-1.0) Aspartate Amino Transf (AST/SGOT) 18 U/L (15-37) Alanine Aminotransferase (ALT/SGPT) 20 U/L (16-63) Alkaline Phosphatase 69 U/L (46-116) Total Protein 7.1 g/dL (6.4-8.2) Albumin 3.2 g/dL (3.4-5.0) Albumin/Globulin Ratio 0.8 (1.0-1.7) Medications Active Scripts Medications Dose Route/Sig Max Daily Dose Days Date Category Carvedilol 25 Mg Tablet 25 Mg PO BIDWMEALS 04/26/19 Reported Lisinopril 20 Mg Tablet 1 Tab PO DAILY 04/26/19 Reported Amlodipine Besylate 10 Mg Tablet 10 Mg PO DAILY 04/26/19 Reported Atorvastatin Calcium 40 Mg Tablet 1 Tab PO DAILY 04/26/19 Reported Lasix (Furosemide) 20 Mg Tablet 20 Mg PO BID 04/26/19 Reported Comments cxr 04/27 resolved CHF Impression . 1. Acute hypoxic respiratory failure secondary to acute interstitial pulmonary edema secondary to hypertensive emergency. RESOLVED 2. The patient with known hypertension, now comes in with hypertensive emergency with markedly elevated systolic and diastolic pressure triggering acute diastolic, systolic heart failure, minimal history of tobacco use. 3. Abnormal chest x-ray with diffuse interstitial edema and moderate cardiomegaly. resolved 4. Probably CKD. 5. 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 1. Pt on RA. keep saturation 96 and above 2. Follow up chest x-ray post-diuresis with resolved CHF 3. EF 25%. Ischemic w/u per cardiology 4. Cardiology recommendation. 5. The patient would need optimization of blood pressure 6. Discussed with CARLO BURTON MD Apr 27, 2019 08:53
--- NOTE | 2019-04-27 08:56 | PDOC ---
PROGRESS NOTES Chief Complaint Chief Complaint Acute hypoxic respiratory failure secondary to acute interstitial pulmonary edema Hypertensive emergency Acute diastolic, systolic heart failure Minimal history of tobacco use. 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 His saturations were in the 70s. He was tachycardic and hypertensive. His systolic blood pressure was reported 234/155. The patient's chest x-ray showed diffuse interstitial edema and cardiomegaly. The patient was initially placed on BiPAP. His ABG showed a pH of 7.26, pCO2 of 46 and a pO2 of 126 on 60% BiPAP. He did receive 80 mg of IV Lasix. He was then transferred to the ICU while on 100% nonrebreather mask. His saturations were in the high 90s and we switched him to 6 liters nasal cannula and he is saturating in the mid to high 90s. Started on NTG gtt for his BP with some improvement. He is critically ill. Echo shows EF 25%. Plan for cardiac cath today. ill. PAST MEDICAL HISTORY: Hypertension and tobacco abuse. Vitals Vitals Vital Signs Date Time Temp Pulse Resp B/P (MAP) Pulse Ox O2 Delivery O2 Flow Rate FiO2 04/27/19 08:35 90 171/108 04/27/19 06:00 20 99 Room Air 04/27/19 04:00 98.8 98.8 04/27/19 01:00 1.0 Physical Exam General: Alert, Oriented X3, Cooperative, No acute distress Heart: Regular rate, Normal S1, Normal S2 Lungs: Clear Abdomen: Soft, No tenderness Extremities: Other (trace bilateral LE edema ) Skin: No significant lesion Labs LABS Laboratory Tests Test 04/27/19 04:05 White Blood Count 10.0 x10^3/uL (4.0-11.0) Red Blood Count 4.38 x10^6/uL (4.30-5.70) Hemoglobin 12.9 g/dL (13.0-17.5) Hematocrit 39.0 % (39.0-53.0) Mean Corpuscular Volume 89 fL (79-100) Mean Corpuscular Hemoglobin 29 pg (25-35) Mean Corpuscular Hemoglobin Concent 33 g/dL (31-37) Red Cell Distribution Width 14.1 % (11.5-14.5) Platelet Count 225 x10^3/uL (140-400) Neutrophils (%) (Auto) 73 % (31-73) Lymphocytes (%) (Auto) 19 % (24-48) Monocytes (%) (Auto) 7 % (0-9) Eosinophils (%) (Auto) 1 % (0-3) Basophils (%) (Auto) 0 % (0-3) Neutrophils # (Auto) 7.3 x10^3/uL (1.8-7.7) Lymphocytes # (Auto) 1.8 x10^3/uL (1.0-4.8) Monocytes # (Auto) 0.6 x10^3/uL (0.0-1.1) Eosinophils # (Auto) 0.1 x10^3/uL (0.0-0.7) Basophils # (Auto) 0.0 x10^3/uL (0.0-0.2) Sodium Level 140 mmol/L (136-145) Potassium Level 3.4 mmol/L (3.5-5.1) Chloride Level 104 mmol/L (98-107) Carbon Dioxide Level 25 mmol/L (21-32) Anion Gap 11 (6-14) Blood Urea Nitrogen 21 mg/dL (8-26) Creatinine 1.6 mg/dL (0.7-1.3) Estimated GFR (Cockcroft-Gault) 57.4 BUN/Creatinine Ratio 13 (6-20) Glucose Level 109 mg/dL (70-99) Calcium Level 8.4 mg/dL (8.5-10.1) Magnesium Level 1.9 mg/dL (1.8-2.4) Total Bilirubin 0.5 mg/dL (0.2-1.0) Aspartate Amino Transf (AST/SGOT) 18 U/L (15-37) Alanine Aminotransferase (ALT/SGPT) 20 U/L (16-63) Alkaline Phosphatase 69 U/L (46-116) Total Protein 7.1 g/dL (6.4-8.2) Albumin 3.2 g/dL (3.4-5.0) Albumin/Globulin Ratio 0.8 (1.0-1.7) Assessment and Plan Assessmemt and Plan Problems Medical Problems: (1) Acute pulmonary edema Status: Acute (2) Congestive heart failure Status: Acute (3) Hypertension Status: Acute Comment Review of Relevant I have reviewed the following items eladia (where applicable) has been applied. Labs Laboratory Tests Test 04/26/19 07:17 04/26/19 07:20 04/26/19 08:50 04/27/19 04:05 O2 Saturation 98 % (92-99) Arterial Blood pH 7.26 (7.35-7.45) Arterial Blood pCO2 at Patient Temp 46 mmHg (35-46) Arterial Blood pO2 at Patient Temp 126 mmHg (75-108) Arterial Blood HCO3 20 mmol/L (21-28) Arterial Blood Base Excess -7 mmol/L (-3-3) FiO2 60% bipap White Blood Count 12.5 x10^3/uL (4.0-11.0) 10.0 x10^3/uL (4.0-11.0) Red Blood Count 5.11 x10^6/uL (4.30-5.70) 4.38 x10^6/uL (4.30-5.70) Hemoglobin 15.0 g/dL (13.0-17.5) 12.9 g/dL (13.0-17.5) Hematocrit 46.1 % (39.0-53.0) 39.0 % (39.0-53.0) Mean Corpuscular Volume 90 fL (79-100) 89 fL (79-100) Mean Corpuscular Hemoglobin 29 pg (25-35) 29 pg (25-35) Mean Corpuscular Hemoglobin Concent 33 g/dL (31-37) 33 g/dL (31-37) Red Cell Distribution Width 14.2 % (11.5-14.5) 14.1 % (11.5-14.5) Platelet Count 259 x10^3/uL (140-400) 225 x10^3/uL (140-400) Neutrophils (%) (Auto) 70 % (31-73) 73 % (31-73) Lymphocytes (%) (Auto) 23 % (24-48) 19 % (24-48) Monocytes (%) (Auto) 5 % (0-9) 7 % (0-9) Eosinophils (%) (Auto) 2 % (0-3) 1 % (0-3) Basophils (%) (Auto) 0 % (0-3) 0 % (0-3) Neutrophils # (Auto) 8.8 x10^3/uL (1.8-7.7) 7.3 x10^3/uL (1.8-7.7) Lymphocytes # (Auto) 2.8 x10^3/uL (1.0-4.8) 1.8 x10^3/uL (1.0-4.8) Monocytes # (Auto) 0.6 x10^3/uL (0.0-1.1) 0.6 x10^3/uL (0.0-1.1) Eosinophils # (Auto) 0.3 x10^3/uL (0.0-0.7) 0.1 x10^3/uL (0.0-0.7) Basophils # (Auto) 0.1 x10^3/uL (0.0-0.2) 0.0 x10^3/uL (0.0-0.2) Prothrombin Time 12.6 SEC (11.7-14.0) Prothromb Time International Ratio 1.0 (0.8-1.1) Sodium Level 139 mmol/L (136-145) 140 mmol/L (136-145) Potassium Level 4.7 mmol/L (3.5-5.1) 3.4 mmol/L (3.5-5.1) Chloride Level 106 mmol/L (98-107) 104 mmol/L (98-107) Carbon Dioxide Level 23 mmol/L (21-32) 25 mmol/L (21-32) Anion Gap 10 (6-14) 11 (6-14) Blood Urea Nitrogen 18 mg/dL (8-26) 21 mg/dL (8-26) Creatinine 1.8 mg/dL (0.7-1.3) 1.6 mg/dL (0.7-1.3) Estimated GFR (Cockcroft-Gault) 41.4 57.4 BUN/Creatinine Ratio 10 (6-20) 13 (6-20) Glucose Level 184 mg/dL (70-99) 109 mg/dL (70-99) Calcium Level 8.4 mg/dL (8.5-10.1) 8.4 mg/dL (8.5-10.1) Magnesium Level 1.9 mg/dL (1.8-2.4) 1.9 mg/dL (1.8-2.4) Total Bilirubin 0.3 mg/dL (0.2-1.0) 0.5 mg/dL (0.2-1.0) Aspartate Amino Transf (AST/SGOT) 26 U/L (15-37) 18 U/L (15-37) Alanine Aminotransferase (ALT/SGPT) 26 U/L (16-63) 20 U/L (16-63) Alkaline Phosphatase 83 U/L (46-116) 69 U/L (46-116) Troponin I Quantitative < 0.017 ng/mL (0.000-0.055) FL-Oge-Q-Type Natriuretic Peptide 2002 pg/mL (0-124) Total Protein 8.1 g/dL (6.4-8.2) 7.1 g/dL (6.4-8.2) Albumin 3.6 g/dL (3.4-5.0) 3.2 g/dL (3.4-5.0) Albumin/Globulin Ratio 0.8 (1.0-1.7) 0.8 (1.0-1.7) Triglycerides Level 77 mg/dL (0-150) Cholesterol Level 202 mg/dL (0-200) LDL Cholesterol, Calculated 120 mg/dL (0-100) VLDL Cholesterol, Calculated 15 mg/dL (0-40) Non-HDL Cholesterol Calculated 135 mg/dL (0-129) HDL Cholesterol 67 mg/dL (40-60) Cholesterol/HDL Ratio 3.0 Thyroid Stimulating Hormone (TSH) 2.218 uIU/mL (0.358-3.74) Urine Collection Type Unknown Urine Color Yellow Urine Clarity Clear Urine pH 5.0 Urine Specific [place] 1.010 Urine Protein 30 mg/dL (NEG-TRACE) Urine Glucose (UA) Negative mg/dL (NEG) Urine Ketones (Stick) Negative mg/dL (NEG) Urine Blood Negative (NEG) Urine Nitrite Negative (NEG) Urine Bilirubin Negative (NEG) Urine Urobilinogen Dipstick 0.2 mg/dL (0.2 mg/dL) Urine Leukocyte Esterase Negative (NEG) Urine RBC 0 /HPF (0-2) Urine WBC Occ /HPF (0-4) Urine Squamous Epithelial Cells Few /LPF Urine Bacteria Few /HPF (0-FEW) Urine Hyaline Casts Occasional /HPF Urine Opiates Screen Pos (NEG) Urine Methadone Screen Neg (NEG) Urine Barbiturates Neg (NEG) Urine Phencyclidine Screen Neg (NEG) Urine Amphetamine/Methamphetamine Neg (NEG) Urine Benzodiazepines Screen Neg (NEG) Urine Cocaine Screen Neg (NEG) Urine Cannabinoids Screen Neg (NEG) Urine Ethyl Alcohol Neg (NEG) Laboratory Tests Test 04/27/19 04:05 White Blood Count 10.0 x10^3/uL (4.0-11.0) Red Blood Count 4.38 x10^6/uL (4.30-5.70) Hemoglobin 12.9 g/dL (13.0-17.5) Hematocrit 39.0 % (39.0-53.0) Mean Corpuscular Volume 89 fL (79-100) Mean Corpuscular Hemoglobin 29 pg (25-35) Mean Corpuscular Hemoglobin Concent 33 g/dL (31-37) Red Cell Distribution Width 14.1 % (11.5-14.5) Platelet Count 225 x10^3/uL (140-400) Neutrophils (%) (Auto) 73 % (31-73) Lymphocytes (%) (Auto) 19 % (24-48) Monocytes (%) (Auto) 7 % (0-9) Eosinophils (%) (Auto) 1 % (0-3) Basophils (%) (Auto) 0 % (0-3) Neutrophils # (Auto) 7.3 x10^3/uL (1.8-7.7) Lymphocytes # (Auto) 1.8 x10^3/uL (1.0-4.8) Monocytes # (Auto) 0.6 x10^3/uL (0.0-1.1) Eosinophils # (Auto) 0.1 x10^3/uL (0.0-0.7) Basophils # (Auto) 0.0 x10^3/uL (0.0-0.2) Sodium Level 140 mmol/L (136-145) Potassium Level 3.4 mmol/L (3.5-5.1) Chloride Level 104 mmol/L (98-107) Carbon Dioxide Level 25 mmol/L (21-32) Anion Gap 11 (6-14) Blood Urea Nitrogen 21 mg/dL (8-26) Creatinine 1.6 mg/dL (0.7-1.3) Estimated GFR (Cockcroft-Gault) 57.4 BUN/Creatinine Ratio 13 (6-20) Glucose Level 109 mg/dL (70-99) Calcium Level 8.4 mg/dL (8.5-10.1) Magnesium Level 1.9 mg/dL (1.8-2.4) Total Bilirubin 0.5 mg/dL (0.2-1.0) Aspartate Amino Transf (AST/SGOT) 18 U/L (15-37) Alanine Aminotransferase (ALT/SGPT) 20 U/L (16-63) Alkaline Phosphatase 69 U/L (46-116) Total Protein 7.1 g/dL (6.4-8.2) Albumin 3.2 g/dL (3.4-5.0) Albumin/Globulin Ratio 0.8 (1.0-1.7) Medications Current Medications Aspirin (Children'S Aspirin) 324 mg 1X ONCE PO Last administered on 04/26/19at 07:38; Start 04/26/19 at 07:45; Stop 04/26/19 at 07:46; Status DC Morphine Sulfate (Morphine Sulfate) 2 mg PRN Q15MIN PRN IV/SQ PAIN GREATER THAN 3/10 Last administered on 04/26/19at 07:36; Start 04/26/19 at 07:30; Stop 04/27/19 at 07:29; Status DC Nitroglycerin/ Dextrose 250 ml @ 0 mls/hr 1X ONCE IV Last administered on 04/26/19at 07:31; Start 04/26/19 at 07:45; Stop 04/26/19 at 07:46; Status DC Furosemide (Lasix) 80 mg 1X ONCE IVP Last administered on 04/26/19at 07:28; Start 04/26/19 at 07:45; Stop 04/26/19 at 07:46; Status DC Furosemide (Lasix) 100 mg STK-MED ONCE .ROUTE ; Start 04/26/19 at 07:23; Stop 04/26/19 at 07:23; Status DC Nitroglycerin/ Dextrose 250 ml @ As Directed STK-MED ONCE IV ; Start 04/26/19 at 07:23; Stop 04/26/19 at 07:23; Status DC Nitroglycerin/ Dextrose 250 ml @ 1.5 mls/hr CONT PRN IV SEE I/O RECORD Last administered on 04/26/19at 10:35; Start 04/26/19 at 10:30 Amlodipine Besylate (Norvasc) 10 mg DAILY PO Last administered on 04/27/19 08:18; Start 04/26/19 at 12:00 Hydralazine HCl (Apresoline Inj) 10 mg PRN Q4HRS PRN IVP ELEVATED BP, SEE COMMENTS Last administered on 04/27/19 08:16; Start 04/26/19 at 11:30 Labetalol HCl (Normodyne Iv Push) 20 mg PRN Q2HR PRN IVP HYPERTENSION Last administered on 04/27/19 08:35; Start 04/26/19 at 11:30 Lisinopril (Prinivil) 40 mg DAILY PO Last administered on 04/27/19 08:15; Start 04/27/19 at 09:00 Carvedilol (Coreg) 25 mg BIDWMEALS PO Last administered on 04/27/19 08:17; Start 04/26/19 at 17:00 Aspirin (Ecotrin) 81 mg DAILYWBKFT PO Last administered on 04/27/19 08:17; Start 04/27/19 at 08:00 Furosemide (Lasix) 40 mg DAILY IVP Last administered on 04/27/19 08:16; Start 04/27/19 at 09:00 Isosorbide Mononitrate (Imdur) 30 mg DAILY PO Last administered on 04/27/19 08:17; Start 04/26/19 at 14:00 Potassium Chloride (Klor-Con) 40 meq 1X ONCE PO Last administered on 04/27/19 08:19; Start 04/27/19 at 08:30; Stop 04/27/19 at 08:31; Status DC Atorvastatin Calcium (Lipitor) 20 mg QHS PO ; Start 04/27/19 at 21:00 Active Scripts Active Reported Carvedilol 25 Mg Tablet 25 Mg PO BIDWMEALS Lisinopril 20 Mg Tablet 1 Tab PO DAILY Amlodipine Besylate 10 Mg Tablet 10 Mg PO DAILY Atorvastatin Calcium 40 Mg Tablet 1 Tab PO DAILY Lasix (Furosemide) 20 Mg Tablet 20 Mg PO BID Vitals/I & O Vital Sign - Last 24 Hours 04/26/19 04/26/19 04/26/19 04/26/19 09:05 09:45 10:00 10:15 Temp 98.4 98.4 Pulse 92 92 94 92 Resp 24 16 16 16 B/P (MAP) 168/103 (124) 166/127 (140) 169/134 (146) 150/104 (119) Pulse Ox 100 100 100 100 O2 Delivery BiPAP/CPAP NonRebreather Mask NonRebreather Mask Nasal Cannula O2 Flow Rate 6.0 04/26/19 04/26/19 04/26/19 04/26/19 10:30 11:00 11:00 11:12 Pulse 90 92 Resp 16 16 B/P (MAP) 150/113 (125) 149/102 (118) Pulse Ox 95 95 98 O2 Delivery Nasal Cannula Nasal Cannula Nasal Cannula Nasal Cannula O2 Flow Rate 6.0 6.0 6.0 5.0 04/26/19 04/26/19 04/26/19 04/26/19 11:15 11:30 11:52 12:00 Temp 98.3 98.3 Pulse 90 92 91 82 Resp 16 16 16 B/P (MAP) 148/110 (123) 145/105 (118) 139/99 139/99 (112) Pulse Ox 95 95 O2 Delivery Nasal Cannula Nasal Cannula Nasal Cannula O2 Flow Rate 6.0 6.0 6.0 04/26/19 04/26/19 04/26/19 04/26/19 12:30 13:02 13:30 13:45 Pulse 84 88 88 86 Resp 16 16 16 B/P (MAP) 149/103 (118) 158/99 152/99 (116) 141/83 (102) Pulse Ox 94 94 O2 Delivery Nasal Cannula Nasal Cannula Nasal Cannula O2 Flow Rate 6.0 6.0 4.0 04/26/19 04/26/19 04/26/19 04/26/19 13:52 14:00 15:00 15:30 Pulse 94 88 88 88 Resp 16 16 16 B/P (MAP) 141/83 129/86 (100) 144/86 (105) 152/88 (109) O2 Delivery Nasal Cannula Nasal Cannula Nasal Cannula O2 Flow Rate 4.0 4.0 04/26/19 04/26/19 04/26/19 04/26/19 16:00 16:01 16:30 16:45 Temp 98.2 98.2 Pulse 88 96 90 Resp 16 16 B/P (MAP) 133/89 (104) 141/83 (102) 141/83 Pulse Ox 94 O2 Delivery Nasal Cannula Nasal Cannula Nasal Cannula O2 Flow Rate 3.0 6.0 04/26/19 04/26/19 04/26/19 04/26/19 17:00 17:30 19:00 20:00 Temp 98.3 98.3 Pulse 90 88 84 74 Resp 16 16 18 18 B/P (MAP) 151/93 (112) 163/96 (118) 163/96 (118) 145/75 (98) Pulse Ox 96 98 98 O2 Delivery Nasal Cannula Nasal Cannula Nasal Cannula Nasal Cannula O2 Flow Rate 3.0 3.0 3.0 04/26/19 04/26/19 04/26/19 04/26/19 20:00 21:00 21:15 22:00 Pulse 72 89 81 Resp 16 20 B/P (MAP) 128/77 (94) 136/75 (95) 149/91 (110) Pulse Ox 97 97 O2 Delivery Nasal Cannula Nasal Cannula Nasal Cannula O2 Flow Rate 3.0 3.0 2.0 04/26/19 04/26/19 04/27/19 04/27/19 23:00 23:50 00:00 01:00 Temp 98.0 98.0 Pulse 85 80 78 Resp 22 20 18 B/P (MAP) 135/75 (95) 141/87 (105) 144/78 (100) Pulse Ox 98 97 97 O2 Delivery Nasal Cannula Nasal Cannula Nasal Cannula Nasal Cannula O2 Flow Rate 1.0 1.0 1.0 1.0 04/27/19 04/27/19 04/27/19 04/27/19 02:00 03:00 03:30 04:00 Temp 98.8 98.8 Pulse 87 76 70 Resp 18 22 20 B/P (MAP) 138/88 (105) 148/76 (100) 149/91 (110) Pulse Ox 95 97 98 O2 Delivery Room Air Room Air Room Air Room Air 04/27/19 04/27/19 04/27/19 04/27/19 04:37 05:00 06:00 06:33 Pulse 81 75 73 77 Resp 18 20 B/P (MAP) 162/97 148/91 (110) 143/83 (103) 161/97 Pulse Ox 96 99 O2 Delivery Room Air Room Air 04/27/19 04/27/19 04/27/19 04/27/19 08:15 08:16 08:17 08:17 Pulse 72 72 73 73 B/P (MAP) 173/107 173/107 173/107 173/107 04/27/19 04/27/19 08:18 08:35 Pulse 73 90 B/P (MAP) 170/107 171/108 Intake and Output 04/26/19 04/26/19 04/27/19 15:00 23:00 07:00 Intake Total 250 ml 330 ml Output Total 1600 ml 750 ml 0 ml Balance -1350 ml -420 ml 0 ml CRUZ OSBORN MD Apr 27, 2019 08:56
[2019-04-27] MEDS ORDERED: ACETAMINOPHEN 325 MG TABLET. PO ONE (09:15)
[2019-04-27] MEDS ORDERED: ISOSORBIDE MONONITRATE ER 30 MG TAB.ER.24H PO ONE (09:15)
--- NOTE | 2019-04-27 09:19 | PDOC ---
Provider Note Provider Note Echo showed LVEF 20-25%. New finding of cardiomyopathy discussed with patient. Recommend left heart cath to r/o ischemic etiology. R/b/a discussed with patient and he is agreeable. Will proceed with later this morning. MEHDI ROCHA APRN Apr 27, 2019 09:19
--- NOTE | 2019-04-27 09:30 | RAD ---
MR#: [id number] Date of Study: 04/27/2019 Ordering Physician: MEHDI ROCHA, Referring Physician: MEHDI ROCHA, Tech: Maxine Moore RT R, CT RDMS , [facility] APPROVED REPORT Patient Location: IN-PATIENT Indications Uncontrolled HTN Risk Factors Hypertension Renal Artery Doppler Right Renal Artery Left Renal Arter y Proximal 71.0/37.0 cm/secProximal 78.0/35.0 cm/sec Mid 60.0/25.0 cm/secMid 82.0/36.0 cm/sec Distal 85.0/42.0 cm/secDistal 42.0/23.0 cm/sec Renal/Aorta Ratio 0.70Renal/Aorta Ratio 0.70 Prox. Resistive Index 0.50Prox. Resistive Index 0.60 Mid Resistive Index 0.60Mid Resistive Index 0.60 Distal Resistive Index 0.50Distal Resistive Index 0.40 Renal Measurements RightLeft Kidney Mtqslu26.6 cm cmKidney Length9.6 cm cm Right Additional FindingsLeft Additional Findings Aortic Doppler VelocityWaveform Proximal Aorta 116.0 cm/secTriphasic Findings Limited grayscale evaluation of the bilateral kidneys is grossly unremarkable. Cannot rule out a cyst in superior pole of the left kidney. Spectral waveforms and color Doppler of the proximal, mid and distal renal arteries are grossly unrem arkable. The waveforms are technically limited. The aortic velocities and wave forms are within kelvin l limits. Normal renal to aortic ratios noted. No significant hemodynamic stenosis is identified. Critical Notification Critical Value: No <Conclusion> 1. Technically difficult study 2. No clear evidence of renal artery stenosis bilaterally Signed by : Kevin Malin, Electronically Approved : 04/27/2019 09:29:38
[2019-04-27] MEDS ORDERED: IODIXANOL 320 MG/ML 100 ML VIAL. ONE (10:48)
[2019-04-27] MEDS ORDERED: LIDOCAINE 1% PF 2 ML VIAL. ONE (10:48)
[2019-04-27] MEDS ORDERED: VERAPAMIL 5 MG/2 ML VIAL. ONE (11:03)
[2019-04-27] MEDS ORDERED: HEPARIN for IV BOLUS 10,000 UNIT/10 ML VIAL. ONE (11:03)
[2019-04-27] MEDS ORDERED: NITROGLYCERIN 200 MCG/2 ML SYRINGE FOR CATH/VASC LAB. ONE (11:03)
[2019-04-27] MEDS ORDERED: fentaNYL PF VIAL 100 MCG/2 ML VIAL ONE (11:03)
[2019-04-27] MEDS ORDERED: MIDAZOLAM HCL/PF 2 MG/2 ML VIAL. ONE (11:03)
[2019-04-27] MEDS ORDERED: HEPARIN for IV BOLUS 10,000 UNIT/10 ML VIAL. IART ONE (11:15)
[2019-04-27] MEDS ORDERED: VERAPAMIL 5 MG/2 ML VIAL. IART ONE (11:15)
[2019-04-27] MEDS ORDERED: NITROGLYCERIN 200 MCG/2 ML SYRINGE FOR CATH/VASC LAB. IART ONE (11:15)
[2019-04-27] MEDS ORDERED: IODIXANOL 320 MG/ML 100 ML VIAL. IART ONE (11:15)
[2019-04-27] MEDS ORDERED: fentaNYL PF VIAL 100 MCG/2 ML VIAL IV ONE (11:15)
[2019-04-27] MEDS ORDERED: LIDOCAINE 1% PF 2 ML VIAL. INJ ONE (11:15)
[2019-04-27] MEDS ORDERED: MIDAZOLAM HCL/PF 2 MG/2 ML VIAL. IV ONE (11:15)
[2019-04-27] MEDS ORDERED: CONTRAST GIVEN. MC PRN (11:30)
--- NOTE | 2019-04-27 11:44 | NUR ---
8899 Patient stood to use urinal prior to going to boat laborer. Started having pain in left lower leg and became diaphoretic. Took patient's blood pressure and it was quite a bit lower than previous measurements. Had patient lie back down in the bed and rechecked blood pressure. Blood pressure normalized. Patient to boat laborer via bed accompanied by boat laborer personnel.
[2019-04-27] MEDS ORDERED: IV NORMAL SALINE 500ML BAG 500 ML IV ONE (12:30)
--- NOTE | 2019-04-27 12:38 | PDOC ---
MODERATE SEDATION ASSESSMENT RISKS/ALTERNATIVES Risks/Alternatives Risks and alternatives of this type of sedation and procedure discussed with: RISK/ALTERNATIVES: Patient H & P ON CHART H & P H & P on chart and reviewed for co-morbid conditions and appropriate labs. H&P ON CHART: Yes STATUS PREG STATUS ASSESSED: N/A MEDS/ALLERGIES REVIEWED Meds/Allergies Reviewed Medications and Allergies including time and route of recently administered narcotics and sedatives. MEDS/ALLERGIES REVIEWED: Yes ASA RATING ASA RATING: III AIRWAY ASSESSMENT Airway Assessment Airway patency, oral function limitations, presence of caps, crowns, dentures, partials, and ability to extend neck assessed. AIRWAY ASSESSMENT: Yes MALLAMPATI SCORE MALLAMPATI SCORE: II PRE-SEDATION ASSESSMENT PRE-SEDATION ASSESSMENT: Yes LENIN MANE MD Apr 27, 2019 12:38
--- NOTE | 2019-04-27 12:40 | NUR ---
Patient back to room via bed. Right TR band in place with 10 cc air. No oozing noted.
[2019-04-27] MEDS ORDERED: NITROGLYCERIN SUBLINGUAL 0.4 MG BOTTLE OF 25. SL PRN (12:45)
--- NOTE | 2019-04-27 12:50 | CARD ---
MR#: [id number] Date of Study: 04/27/2019 Ordering Physician: MEHDI ROCHA, Referring Physician: MEHDI ROCHA, Tech: iAda Jordan APPROVED REPORT Technologist: Aida Jordan Nurse: Domonique Lara RN Procedure(s) performed: Left heart catheterization, selective coronary angiography via right transrad ial approach fl time: 2.9 mins dose: 44.1 gy/cm2 contrast: 49 ml visipaque moderate sedation: 24 MINS class 4 heart failure INDICATION The indication(s) include : Cardiomyopathy. [facility] Clinical Frailty Scale [facility] Clinical Frailty Scale: Mildly Frail Heart Failure Heart Failure: Yes If Yes, Newly Diagnosed: Yes If Yes, HF Type: Systolic If Yes, NYHA Class: Class III PROCEDURE NARRATIVE After explaining the risks, benefits and alternative options, informed consent was obtained from moe ent. Patient was brought to the cardiac Physical Therapy Professor and right wrist was prepped and draped in the usual fashion after confirming a positive modified James's test. Arterial access was obtained in the righ t radial artery and a 6 [place] sheath was inserted. 6 [place] Audie catheter was used to perform lewis ective angiography of the left and right coronary arteries. 6 [place] pigtail catheter was used to pe rform left ventriculography. Patient tolerated the procedure well. Hemostasis was achieved using TR band. There were no immediate complications. The following findings were noted. FINDINGS 1. Hemodynamics: Left ventricular end-diastolic pressure of 3 mmHg. No pullback gradient across the aortic valve. 2. Coronary angiography: a. The left main coronary artery arose from the left sinus of Valsalva, was very short, gave rise to the left anterior descending and left circumflex arteries and did not show any significant stenosis. b. The left anterior descending artery did not show any significant stenosis. c. The left circumflex artery did not show any significant stenosis. d. The right coronary artery was a dominant vessel arising from the right sinus of Valsalva that did not show any significant stenosis. Conclusion No significant coronary artery disease Recommendations Optimization of medical therapy for nonischemic cardiomyopathy. Repeat 2-D echo in 3 months to evaluate the need for AICD implantation. Signed by : Jaspreet Pasnoori, Electronically Approved : 04/27/2019 12:49:54
[2019-04-27] MEDS ORDERED: ATORVASTATIN CALCIUM 20 MG TABLET PO SCH (21:00)
[2019-04-28 02:44] VITALS: BP 138/89
[2019-04-28 07:00] VITALS: BP 149/80
[2019-04-28] MEDS: LISINOPRIL 20 MG TABLET PO SCH (08:37)
[2019-04-28] MEDS: ISOSORBIDE MONONITRATE ER 30 MG TAB.ER.24H PO SCH ×2 (08:37→09:00)
[2019-04-28] MEDS: CARVEDILOL 12.5 MG TABLET. PO SCH (08:38)
[2019-04-28] MEDS: ASPIRIN ENTERIC COATED 81 MG TABLET.DR. PO SCH (08:38)
[2019-04-28] MEDS: amLODIPine BESYLATE 10 MG TABLET PO SCH (08:38)
[2019-04-28] MEDS: FUROSEMIDE 40 MG/4 ML VIAL. IVP SCH (08:39)
--- NOTE | 2019-04-28 10:22 | PDOC ---
PULMONARY PROGRESS NOTES Subjective feels better, no debora on RA Vitals Vital Signs Date Time Temp Pulse Resp B/P (MAP) Pulse Ox O2 Delivery O2 Flow Rate FiO2 04/28/19 08:38 71 149/80 04/28/19 07:00 98.7 16 97 Room Air 98.7 04/27/19 12:28 2.0 ROS: No Chest Pain General: Alert, No acute distress Lungs: Clear Cardiovascular: S1 Abdomen: Soft Neuro Exam: Alert Extremities: No Edema Skin: Warm Labs Laboratory Tests Test 04/27/19 04:05 White Blood Count 10.0 x10^3/uL (4.0-11.0) Red Blood Count 4.38 x10^6/uL (4.30-5.70) Hemoglobin 12.9 g/dL (13.0-17.5) Hematocrit 39.0 % (39.0-53.0) Mean Corpuscular Volume 89 fL (79-100) Mean Corpuscular Hemoglobin 29 pg (25-35) Mean Corpuscular Hemoglobin Concent 33 g/dL (31-37) Red Cell Distribution Width 14.1 % (11.5-14.5) Platelet Count 225 x10^3/uL (140-400) Neutrophils (%) (Auto) 73 % (31-73) Lymphocytes (%) (Auto) 19 % (24-48) Monocytes (%) (Auto) 7 % (0-9) Eosinophils (%) (Auto) 1 % (0-3) Basophils (%) (Auto) 0 % (0-3) Neutrophils # (Auto) 7.3 x10^3/uL (1.8-7.7) Lymphocytes # (Auto) 1.8 x10^3/uL (1.0-4.8) Monocytes # (Auto) 0.6 x10^3/uL (0.0-1.1) Eosinophils # (Auto) 0.1 x10^3/uL (0.0-0.7) Basophils # (Auto) 0.0 x10^3/uL (0.0-0.2) Sodium Level 140 mmol/L (136-145) Potassium Level 3.4 mmol/L (3.5-5.1) Chloride Level 104 mmol/L (98-107) Carbon Dioxide Level 25 mmol/L (21-32) Anion Gap 11 (6-14) Blood Urea Nitrogen 21 mg/dL (8-26) Creatinine 1.6 mg/dL (0.7-1.3) Estimated GFR (Cockcroft-Gault) 57.4 BUN/Creatinine Ratio 13 (6-20) Glucose Level 109 mg/dL (70-99) Calcium Level 8.4 mg/dL (8.5-10.1) Magnesium Level 1.9 mg/dL (1.8-2.4) Total Bilirubin 0.5 mg/dL (0.2-1.0) Aspartate Amino Transf (AST/SGOT) 18 U/L (15-37) Alanine Aminotransferase (ALT/SGPT) 20 U/L (16-63) Alkaline Phosphatase 69 U/L (46-116) Total Protein 7.1 g/dL (6.4-8.2) Albumin 3.2 g/dL (3.4-5.0) Albumin/Globulin Ratio 0.8 (1.0-1.7) Medications Active Scripts Medications Dose Route/Sig Max Daily Dose Days Date Category Carvedilol 25 Mg Tablet 25 Mg PO BIDWMEALS 04/26/19 Reported Lisinopril 20 Mg Tablet 1 Tab PO DAILY 04/26/19 Reported Amlodipine Besylate 10 Mg Tablet 10 Mg PO DAILY 04/26/19 Reported Atorvastatin Calcium 40 Mg Tablet 1 Tab PO DAILY 04/26/19 Reported Lasix (Furosemide) 20 Mg Tablet 20 Mg PO BID 04/26/19 Reported Comments cxr 04/27 resolved CHF Impression . 1. Acute hypoxic respiratory failure secondary to acute interstitial pulmonary edema secondary to hypertensive emergency. RESOLVED 2. The patient with known hypertension, now comes in with hypertensive emergency with markedly elevated systolic and diastolic pressure triggering acute diastolic, systolic heart failure, minimal history of tobacco use. 3. Abnormal chest x-ray with diffuse interstitial edema and moderate cardiomegaly. resolved 4. Probably CKD. 5. 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 1. Pt on RA. keep saturation 96 and above 2. Follow up chest x-ray post-diuresis with resolved CHF 3. EF 25%. S/P Cath, no CAD 4. Cardiology recommendation. 5. optimization of blood pressure 6. Discussed with RN NO MORE PULMONARY ISSUES. WILL SIGN OFF CARLO COLÓN MD Apr 28, 2019 10:22
[2019-04-28 11:00] VITALS: BP 125/70
--- NOTE | 2019-04-28 11:42 | PDOC ---
PROGRESS NOTES Chief Complaint Chief Complaint Acute hypoxic respiratory failure secondary to acute interstitial pulmonary edema Hypertensive emergency Acute diastolic, systolic heart failure Minimal history of tobacco use. 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 His saturations were in the 70s. He was tachycardic and hypertensive. His systolic blood pressure was reported 234/155. The patient's chest x-ray showed diffuse interstitial edema and cardiomegaly. The patient was initially placed on BiPAP. His ABG showed a pH of 7.26, pCO2 of 46 and a pO2 of 126 on 60% BiPAP. He did receive 80 mg of IV Lasix. He was then transferred to the ICU while on 100% nonrebreather mask. His saturations were in the high 90s and we switched him to 6 liters nasal cannula and he is saturating in the mid to high 90s. Started on NTG gtt for his BP with some improvement. He is critically ill. Echo shows EF 25%. S/p cardiac cath 04/27/19 essentially showing no significant CAD. After 48 hours of IV diuresis he was able to get off O2. ECHO The left ventricular systolic function is severely impaired. The Ejection Fraction is 20-25%. Trace mitral regurgitation. Trace tricuspid regurgitation with an estimated 25 mmHg. There is no evidence of significant pericardial effusion. He is feeling improved. Gambling on his phone. No longer on O2, no CP, SOB improved. Wishes to home, new medication imdur discussed and need for repeat Echo in the next 3 months given his severely reduced EF. Vitals Vitals Vital Signs Date Time Temp Pulse Resp B/P (MAP) Pulse Ox O2 Delivery O2 Flow Rate FiO2 04/28/19 11:00 98.9 80 18 125/70 (88) 98 Room Air 98.9 04/27/19 12:28 2.0 Physical Exam General: Alert, Oriented X3, Cooperative, No acute distress Heart: Regular rate, Normal S1, Normal S2 Lungs: Clear Abdomen: Soft, No tenderness Extremities: Other (trace bilateral LE edema ) Skin: No significant lesion Assessment and Plan Assessmemt and Plan Problems Medical Problems: (1) Acute pulmonary edema Status: Acute (2) Congestive heart failure Status: Acute (3) Hypertension Status: Acute Comment Review of Relevant I have reviewed the following items eladia (where applicable) has been applied. Labs Laboratory Tests Test 04/27/19 04:05 White Blood Count 10.0 x10^3/uL (4.0-11.0) Red Blood Count 4.38 x10^6/uL (4.30-5.70) Hemoglobin 12.9 g/dL (13.0-17.5) Hematocrit 39.0 % (39.0-53.0) Mean Corpuscular Volume 89 fL (79-100) Mean Corpuscular Hemoglobin 29 pg (25-35) Mean Corpuscular Hemoglobin Concent 33 g/dL (31-37) Red Cell Distribution Width 14.1 % (11.5-14.5) Platelet Count 225 x10^3/uL (140-400) Neutrophils (%) (Auto) 73 % (31-73) Lymphocytes (%) (Auto) 19 % (24-48) Monocytes (%) (Auto) 7 % (0-9) Eosinophils (%) (Auto) 1 % (0-3) Basophils (%) (Auto) 0 % (0-3) Neutrophils # (Auto) 7.3 x10^3/uL (1.8-7.7) Lymphocytes # (Auto) 1.8 x10^3/uL (1.0-4.8) Monocytes # (Auto) 0.6 x10^3/uL (0.0-1.1) Eosinophils # (Auto) 0.1 x10^3/uL (0.0-0.7) Basophils # (Auto) 0.0 x10^3/uL (0.0-0.2) Sodium Level 140 mmol/L (136-145) Potassium Level 3.4 mmol/L (3.5-5.1) Chloride Level 104 mmol/L (98-107) Carbon Dioxide Level 25 mmol/L (21-32) Anion Gap 11 (6-14) Blood Urea Nitrogen 21 mg/dL (8-26) Creatinine 1.6 mg/dL (0.7-1.3) Estimated GFR (Cockcroft-Gault) 57.4 BUN/Creatinine Ratio 13 (6-20) Glucose Level 109 mg/dL (70-99) Calcium Level 8.4 mg/dL (8.5-10.1) Magnesium Level 1.9 mg/dL (1.8-2.4) Total Bilirubin 0.5 mg/dL (0.2-1.0) Aspartate Amino Transf (AST/SGOT) 18 U/L (15-37) Alanine Aminotransferase (ALT/SGPT) 20 U/L (16-63) Alkaline Phosphatase 69 U/L (46-116) Total Protein 7.1 g/dL (6.4-8.2) Albumin 3.2 g/dL (3.4-5.0) Albumin/Globulin Ratio 0.8 (1.0-1.7) Medications Current Medications Aspirin (Children'S Aspirin) 324 mg 1X ONCE PO Last administered on 04/26/19at 07:38; Start 04/26/19 at 07:45; Stop 04/26/19 at 07:46; Status DC Morphine Sulfate (Morphine Sulfate) 2 mg PRN Q15MIN PRN IV/SQ PAIN GREATER THAN 3/10 Last administered on 04/26/19at 07:36; Start 04/26/19 at 07:30; Stop 04/27/19 at 07:29; Status DC Nitroglycerin/ Dextrose 250 ml @ 0 mls/hr 1X ONCE IV Last administered on 04/26/19at 07:31; Start 04/26/19 at 07:45; Stop 04/26/19 at 07:46; Status DC Furosemide (Lasix) 80 mg 1X ONCE IVP Last administered on 04/26/19at 07:28; Start 04/26/19 at 07:45; Stop 04/26/19 at 07:46; Status DC Furosemide (Lasix) 100 mg STK-MED ONCE .ROUTE ; Start 04/26/19 at 07:23; Stop 04/26/19 at 07:23; Status DC Nitroglycerin/ Dextrose 250 ml @ As Directed STK-MED ONCE IV ; Start 04/26/19 at 07:23; Stop 04/26/19 at 07:23; Status DC Nitroglycerin/ Dextrose 250 ml @ 1.5 mls/hr CONT PRN IV SEE I/O RECORD Last administered on 04/26/19at 10:35; Start 04/26/19 at 10:30 Amlodipine Besylate (Norvasc) 10 mg DAILY PO Last administered on 04/28/19 08:38; Start 04/26/19 at 12:00 Hydralazine HCl (Apresoline Inj) 10 mg PRN Q4HRS PRN IVP ELEVATED BP, SEE COMMENTS Last administered on 04/27/19 08:16; Start 04/26/19 at 11:30 Labetalol HCl (Normodyne Iv Push) 20 mg PRN Q2HR PRN IVP HYPERTENSION Last administered on 04/27/19 08:35; Start 04/26/19 at 11:30 Lisinopril (Prinivil) 40 mg DAILY PO Last administered on 04/28/19 08:37; Start 04/27/19 at 09:00 Carvedilol (Coreg) 25 mg BIDWMEALS PO Last administered on 04/28/19 08:38; Start 04/26/19 at 17:00 Aspirin (Ecotrin) 81 mg DAILYWBKFT PO Last administered on 04/28/19 08:38; Start 04/27/19 at 08:00 Furosemide (Lasix) 40 mg DAILY IVP Last administered on 04/28/19 08:39; Start 04/27/19 at 09:00 Isosorbide Mononitrate (Imdur) 30 mg DAILY PO Last administered on 04/27/19 08:17; Start 04/26/19 at 14:00; Stop 04/27/19 at 09:05; Status DC Potassium Chloride (Klor-Con) 40 meq 1X ONCE PO Last administered on 08:19; Start 04/27/19 at 08:30; Stop 04/27/19 at 08:31; Status DC Atorvastatin Calcium (Lipitor) 20 mg QHS PO Last administered on 04/27/19 20:17; Start 04/27/19 at 21:00 Isosorbide Mononitrate (Imdur) 30 mg STAT ONCE PO Last administered on 04/27/19 09:09; Start 04/27/19 at 09:15; Stop 04/27/19 at 09:16; Status DC Acetaminophen (Tylenol) 650 mg 1X ONCE PO Last administered on 04/27/19 09:09; Start 04/27/19 at 09:15; Stop 04/27/19 at 09:16; Status DC Isosorbide Mononitrate (Imdur) 60 mg DAILY PO Last administered on 04/28/19at 08:37; Start 04/28/19 at 08:00 Iodixanol (Visipaque 320) 100 ml STK-MED ONCE .ROUTE ; Start 04/27/19 at 10:48; Stop 04/27/19 at 10:49; Status DC Lidocaine HCl (Xylocaine-Mpf 1% 2ml Vial) 2 ml STK-MED ONCE .ROUTE ; Start 04/27/19 at 10:48; Stop 04/27/19 at 10:49; Status DC Heparin Sodium/ Sodium Chloride 1,000 ml @ As Directed STK-MED ONCE .ROUTE ; Start 04/27/19 at 10:48; Stop 04/27/19 at 10:49; Status DC Fentanyl Citrate (Fentanyl 2ml Vial) 100 mcg STK-MED ONCE .ROUTE ; Start 04/27/19 at 11:03; Stop 04/27/19 at 11:03; Status DC Midazolam HCl (Versed) 2 mg STK-MED ONCE .ROUTE ; Start 04/27/19 at 11:03; Stop 04/27/19 at 11:03; Status DC Heparin Sodium (Porcine) (Heparin Sodium) 10,000 unit STK-MED ONCE .ROUTE ; Start 04/27/19 at 11:03; Stop 04/27/19 at 11:03; Status DC Verapamil HCl (Verapamil) 5 mg STK-MED ONCE .ROUTE ; Start 04/27/19 at 11:03; Stop 04/27/19 at 11:04; Status DC Nitroglycerin (Nitroglycerin) 200 mcg STK-MED ONCE .ROUTE ; Start 04/27/19 at 11:03; Stop 04/27/19 at 11:04; Status DC Nitroglycerin (Nitroglycerin) 200 mcg 1X ONCE IART Last administered on 04/27/19at 12:07; Start 04/27/19 at 11:15; Stop 04/27/19 at 11:16; Status DC Verapamil HCl (Verapamil) 2.5 mg 1X ONCE IART Last administered on 04/27/19at 12:07; Start 04/27/19 at 11:15; Stop 04/27/19 at 11:16; Status DC Heparin Sodium (Porcine) (Heparin Sodium) 2,500 unit 1X ONCE IART Last administered on 04/27/19at 12:07; Start 04/27/19 at 11:15; Stop 04/27/19 at 11:16; Status DC Heparin Sodium/ Sodium Chloride (HEPARIN for ARTERIAL LINE FLUSH) 1,000 unit 1X ONCE IART Last administered on 04/27/19at 11:15; Start 04/27/19 at 11:15; Stop 04/27/19 at 11:16; Status DC Heparin Sodium/ Sodium Chloride (HEPARIN for ARTERIAL LINE FLUSH) 1,000 unit 1X ONCE IART Last administered on 04/27/19at 11:15; Start 04/27/19 at 11:15; Stop 04/27/19 at 11:16; Status DC Midazolam HCl (Versed) 2 mg 1X ONCE IV Last administered on 04/27/19at 12:06; Start 04/27/19 at 11:15; Stop 04/27/19 at 11:16; Status DC Fentanyl Citrate (Fentanyl 2ml Vial) 100 mcg 1X ONCE IV Last administered on 04/27/19at 12:06; Start 04/27/19 at 11:15; Stop 04/27/19 at 11:16; Status DC Iodixanol (Visipaque 320) 100 ml 1X ONCE IART Last administered on 04/27/19at 12:25; Start 04/27/19 at 11:15; Stop 04/27/19 at 11:16; Status DC Lidocaine HCl (Xylocaine-Mpf 1% 2ml Vial) 2 ml 1X ONCE INJ Last administered on 04/27/19at 12:07; Start 04/27/19 at 11:15; Stop 04/27/19 at 11:16; Status DC Info (CONTRAST GIVEN -- Rx MONITORING) 1 each PRN DAILY PRN MC SEE COMMENTS; Start 04/27/19 at 11:30; Stop 04/29/19 at 11:29 Sodium Chloride 500 ml @ 500 mls/hr 1X ONCE IV Last administered on 04/27/19at 12:28; Start 04/27/19 at 12:30; Stop 04/27/19 at 13:29; Status DC Nitroglycerin (Nitrostat) 0.4 mg PRN Q5MIN PRN SL CHEST PAIN; Start 04/27/19 at 12:45 Active Scripts Active Reported Carvedilol 25 Mg Tablet 25 Mg PO BIDWMEALS Lisinopril 20 Mg Tablet 1 Tab PO DAILY Amlodipine Besylate 10 Mg Tablet 10 Mg PO DAILY Atorvastatin Calcium 40 Mg Tablet 1 Tab PO DAILY Lasix (Furosemide) 20 Mg Tablet 20 Mg PO BID Vitals/I & O Vital Sign - Last 24 Hours 04/27/19 04/27/19 04/27/19 04/27/19 12:06 12:07 12:28 12:46 Temp 98.7 98.7 Pulse 72 72 80 Resp 14 15 26 B/P (MAP) 90/79 (83) Pulse Ox 98 97 O2 Delivery Nasal Cannula Room Air O2 Flow Rate 2.0 04/27/19 04/27/19 04/27/19 04/27/19 12:51 13:00 13:15 13:30 Pulse 74 74 72 Resp B/P (MAP) 131/93 (106) 137/82 (100) 123/74 (90) Pulse Ox 97 97 97 O2 Delivery Room Air Room Air Room Air Room Air 04/27/19 04/27/19 04/27/19 04/27/19 13:45 14:45 15:00 17:49 Temp 97.8 97.8 Pulse 72 76 86 Resp 18 B/P (MAP) 125/75 (92) 151/103 (119) Pulse Ox 97 97 O2 Delivery Room Air Room Air Room Air 04/27/19 04/27/19 04/27/19 04/28/19 19:11 19:50 22:52 02:44 Temp 98.8 98.4 98.6 98.8 98.4 98.6 Pulse 82 83 75 Resp 18 18 18 B/P (MAP) 136/75 (95) 152/79 (103) 138/89 (105) Pulse Ox 99 98 97 O2 Delivery Room Air Room Air Room Air Room Air 04/28/19 04/28/19 04/28/19 04/28/19 07:00 08:00 08:37 08:37 Temp 98.7 98.7 Pulse 71 71 71 Resp 16 B/P (MAP) 149/80 (103) 149/80 149/80 Pulse Ox 97 O2 Delivery Room Air Room Air 04/28/19 04/28/19 04/28/19 08:38 08:38 11:00 Temp 98.9 98.9 Pulse 71 71 80 Resp 18 B/P (MAP) 149/80 149/80 125/70 (88) Pulse Ox 98 O2 Delivery Room Air Intake and Output 04/27/19 04/27/19 04/28/19 15:00 23:00 07:00 Intake Total 620 ml 1180 ml 60 ml Output Total 2150 ml 400 ml Balance -1530 ml 780 ml 60 ml CRUZ OSBORN MD Apr 28, 2019 11:42
[2019-04-28] MEDS ORDERED: POTASSIUM CHLORIDE 20 MEQ TABLET.ER. PO ONE (12:00)
[2019-04-28] MEDS ORDERED: ISOS30TA4 PO (12:19)
--- NOTE | 2019-04-28 12:22 | PDOC3 ---
Discharge Summary Visit Information Date of Admission: Apr 26, 2019 Date of Discharge: Apr 28, 2019 Admitting Diagnosis: Acute hypoxic respiratory failure Final Diagnosis Problems Medical Problems: (1) Acute pulmonary edema Status: Acute (2) Congestive heart failure Status: Acute (3) Hypertension Status: Acute Brief Hospital Course Allergies Allergies Coded Allergies Type Severity Reaction Last Updated Verified No Known Drug Allergies 04/26/19 No Vital Signs Vital Signs Date Time Temp Pulse Resp B/P (MAP) Pulse Ox O2 Delivery O2 Flow Rate FiO2 04/28/19 11:00 98.9 80 18 125/70 (88) 98 Room Air 98.9 04/27/19 12:28 2.0 Lab Results Laboratory Tests Test 04/27/19 04:05 White Blood Count 10.0 x10^3/uL (4.0-11.0) Red Blood Count 4.38 x10^6/uL (4.30-5.70) Hemoglobin 12.9 g/dL (13.0-17.5) Hematocrit 39.0 % (39.0-53.0) Mean Corpuscular Volume 89 fL (79-100) Mean Corpuscular Hemoglobin 29 pg (25-35) Mean Corpuscular Hemoglobin Concent 33 g/dL (31-37) Red Cell Distribution Width 14.1 % (11.5-14.5) Platelet Count 225 x10^3/uL (140-400) Neutrophils (%) (Auto) 73 % (31-73) Lymphocytes (%) (Auto) 19 % (24-48) Monocytes (%) (Auto) 7 % (0-9) Eosinophils (%) (Auto) 1 % (0-3) Basophils (%) (Auto) 0 % (0-3) Neutrophils # (Auto) 7.3 x10^3/uL (1.8-7.7) Lymphocytes # (Auto) 1.8 x10^3/uL (1.0-4.8) Monocytes # (Auto) 0.6 x10^3/uL (0.0-1.1) Eosinophils # (Auto) 0.1 x10^3/uL (0.0-0.7) Basophils # (Auto) 0.0 x10^3/uL (0.0-0.2) Sodium Level 140 mmol/L (136-145) Potassium Level 3.4 mmol/L (3.5-5.1) Chloride Level 104 mmol/L (98-107) Carbon Dioxide Level 25 mmol/L (21-32) Anion Gap 11 (6-14) Blood Urea Nitrogen 21 mg/dL (8-26) Creatinine 1.6 mg/dL (0.7-1.3) Estimated GFR (Cockcroft-Gault) 57.4 BUN/Creatinine Ratio 13 (6-20) Glucose Level 109 mg/dL (70-99) Calcium Level 8.4 mg/dL (8.5-10.1) Magnesium Level 1.9 mg/dL (1.8-2.4) Total Bilirubin 0.5 mg/dL (0.2-1.0) Aspartate Amino Transf (AST/SGOT) 18 U/L (15-37) Alanine Aminotransferase (ALT/SGPT) 20 U/L (16-63) Alkaline Phosphatase 69 U/L (46-116) Total Protein 7.1 g/dL (6.4-8.2) Albumin 3.2 g/dL (3.4-5.0) Albumin/Globulin Ratio 0.8 (1.0-1.7) Brief Hospital Course Mr Black is a 44yo M w/ PMHx HTN, tobacco abuse who came to the ED c/o respiratory distress. His saturations were in the 70s. He was tachycardic and hypertensive. His systolic blood pressure was reported 234/155. The patient's chest x-ray showed diffuse interstitial edema and cardiomegaly. The patient was initially placed on BiPAP. His ABG showed a pH of 7.26, pCO2 of 46 and a pO2 of 126 on 60% BiPAP. He did receive 80 mg of IV Lasix. He was then transferred to the ICU while on 100% nonrebreather mask. His saturations were in the high 90s and we switched him to 6 liters nasal cannula and he is saturating in the mid to high 90s. Started on NTG gtt for his BP with some improvement. He is critically ill. Echo shows EF 25%. S/p cardiac cath 04/27/19 essentially showing no significant CAD. After 48 hours of IV diuresis he was able to get off O2. ECHO The left ventricular systolic function is severely impaired. The Ejection Fraction is 20-25%. Trace mitral regurgitation. Trace tricuspid regurgitation with an estimated 25 mmHg. There is no evidence of significant pericardial effusion. He is feeling improved. Gambling on his phone. No longer on O2, no CP, SOB improved. Wishes to home, new medication imdur discussed and need for repeat Echo in the next 3 months given his severely reduced EF. Problem list - Acute hypoxic respiratory failure secondary to acute interstitial pulmonary edema Hypertensive emergency Acute diastolic, systolic heart failure Minimal history of tobacco use. 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% Greater than 30 minutes spent on d/c Discharge Information Condition at Discharge: Improved Follow Up: Weeks (1) Disposition/Orders: D/C to Home Scheduled Amlodipine Besylate (Amlodipine Besylate) 10 Mg Tablet, 10 MG PO DAILY for HIGH BP, (Reported) Entered as Reported by: COREY OSBORN on 04/26/19 1022 Last Action: New Order on 04/26/19 1022 by COREY OSBORN Atorvastatin Calcium (Atorvastatin Calcium) 40 Mg Tablet, 1 TAB PO DAILY for CHOLESTEROL, #30 Ref 5 (Reported) Entered as Reported by: COREY OSBORN on 04/26/19 1022 Last Action: New Order on 04/26/19 1022 by COREY OSBORN Carvedilol (Carvedilol) 25 Mg Tablet, 25 MG PO BIDWMEALS for CARDIAC, (Reported) Entered as Reported by: COREY OSBORN on 04/26/19 1022 Last Action: New Order on 04/26/19 1022 by COREY OSBORN Furosemide (Lasix) 20 Mg Tablet, 20 MG PO BID for DIURETIC, (Reported) Entered as Reported by: COREY OSBORN on 04/26/19 1022 Last Action: New Order on 04/26/19 1022 by COREY OSBORN Isosorbide Mononitrate (Isosorbide Mononitrate Er) 30 Mg Tab.er.24h, 60 MG PO DAILY for CHF for 30 Days, #60 Ref 2 Prescribed by: CRUZ OSBORN MD on 04/28/19 1219 Lisinopril (Lisinopril) 20 Mg Tablet, 1 TAB PO DAILY for HIGH BP, #30 Ref 5 (Reported) Entered as Reported by: COREY OSBORN on 04/26/19 1022 Last Action: New Order on 04/26/19 1022 by CRUZ VERGARA MD Apr 28, 2019 12:22
--- NOTE | 2019-04-28 13:13 | NUR ---
Discharge Note: VERONA ALLEN Discharge instructions and discharge home medications reviewed with Patient and a copy given. All questions have been answered and understanding verbalized. The following instructions and handouts were given new script for Imdur and instructions for arm board to stay on until 6pm tonight Discontinued lines and drains:PIV out with no complications Patient discharged to home with all belongings in hand.
== END 2019-04-28 13:22 | disposition home or self-care (01) | DRG 286 ==
LOC: ER 07:12 → 1 WEST ICU 08:20 → 2 NORTH 04-27 14:36
PROVIDERS: ADMIT Internal Medicine; ATTEND Internal Medicine
PROC: 5A09357 Assistance with Respiratory Ventilation, Less than 24 Consecutive Hours, Continuous Positive Airway Pressure (ICD-10-PCS; 2019-04-26)
PROC: 4A023N7 Measurement of Cardiac Sampling and Pressure, Left Heart, Percutaneous Approach (ICD-10-PCS; principal; 2019-04-27)
PROC: B2151ZZ Fluoroscopy of Left Heart using Low Osmolar Contrast (ICD-10-PCS; 2019-04-27)
PROC: B2111ZZ Fluoroscopy of Multiple Coronary Arteries using Low Osmolar Contrast (ICD-10-PCS; 2019-04-27)
DX: I13.0 Hypertensive heart and chronic kidney disease with heart failure and stage 1 through stage 4 chronic kidney disease, or unspecified chronic kidney disease (principal); J96.01 Acute respiratory failure with hypoxia; I50.43 Acute on chronic combined systolic (congestive) and diastolic (congestive) heart failure; I16.1 Hypertensive emergency; N17.9 Acute kidney failure, unspecified; F17.200 Nicotine dependence, unspecified, uncomplicated; N18.9 Chronic kidney disease, unspecified; Z82.49 Family history of ischemic heart disease and other diseases of the circulatory system; Z83.3 Family history of diabetes mellitus; Z86.73 Personal history of transient ischemic attack (TIA), and cerebral infarction without residual deficits; Z79.899 Other long term (current) drug therapy
CPT/HCPCS: 36415; 36600; 71045; 76770; 80053; 80061; 80307; 81001; 82805; 83735; 83880; 84443; 84484; 85025; 85610; 93005; 93306; 93458; 94660; 96365; 96375; 99152; 99153; C1769; C1892; J0360; J1644; J1940; J2250; J2270; J3010; J3490; J7040; Q9967; 99291-25; G0378